=== PATIENT | female | born 1945 | race Caucasian/White ===

== ENCOUNTER 2019-07-04 19:57 | Emergency (ER) | payer OTHER, SELFPAY ==
[2019-07-04 20:23] VITALS: BP 176/91; PULSE 59; RESP 18; TEMP 37.2; O2SAT 99; BMI 24.7
[2019-07-04] MEDS: predniSONE 20 MG TABLET 40 MG PO (20:43)
[2019-07-04] MEDS: CYCLOBENZAPRINE 10 MG TABLET PO (20:44)
[2019-07-04] MEDS: HYDROCODONE/ACET 5/325 TABLET 1 TAB PO ×2 (20:46→21:26)
--- NOTE | 2019-07-04 21:06 | ED.BACK ---
HPI - Back Pain/Injury <Angelika Powers, WOOD STAINER-BC - Last Filed: 07/04/19 21:33> General Chief Complaint: Back Pain/Injury Stated Complaint: back pain Time Seen by Provider: 07/04/19 20:16 Source: patient and family Mode of arrival: ambulatory Limitations: no limitations History of Present Illness HPI Narrative: The patient is a 73-year-old female former smoker with history of back pain and sciatic who presents with a chief complaint of lower back pain. This started a few days ago when she was lifting rocks for her garden. She states she was lifting a rock, and twisting when she had the sudden onset of pain. She states her pain is across her lower back and radiates down her right leg to about her knee. She states this is consistent with her previous history of sciatica. She states that she has had surgery on her spine in the past, in order to work on her sciatica. She has scheduled follow-up with a pain specialist later this week. She states her pain is worse with movement. It is worse when she is sitting on when she is lying down. She denies any incontinence of bowel, incontinence of bladder or saddle anesthesia. She denies any numbness or tingling anywhere. She states that she took a Robaxin at 3:00 p.m. as well as 650 of Tylenol at 3:00 p.m.. She was seen at [facility] this morning, where she received Valium, as well as a trigger point injection. She states that she was told to come to this emergency department for an MRI if she does not feel better or feels worse. She states that she had a CT this morning at [facility], and that it came back with no acute findings. Related Data Home Medications Medication Instructions Recorded Confirmed meloxicam 15 mg tablet 15 mg PO DAILY 04/04/19 04/04/19 Previous Rx's Medication Instructions Recorded adjuvant AS01B (PF), component 0.5 ml IM ONCE #0.5 ml 04/04/19 vial 1 of 2 intramuscular suspension gabapentin 100 mg capsule 100 mg PO TID PRN #60 cap 04/04/19 lidocaine 5 % topical patch 1 patch TOP DAILY #30 each 04/04/19 cyclobenzaprine 10 mg PO TID PRN #20 tab 07/04/19 hydrocodone-acetaminophen [Delco] 1 tab PO Q4-6H PRN #14 tab 07/04/19 prednisone 40 mg PO DAILY #10 tab 07/04/19 Allergies Allergy/AdvReac Type Severity Reaction Status Date / Time Sulfa (Sulfonamide Allergy Unknown PT DOESN'T Verified 07/04/19 20:49 Antibiotics) RECALL [SULFA (SULFONAMIDE ANTIBIOTICS)] ibandronate sodium AdvReac Intermediate JOINT Verified 07/04/19 20:49 [From BONIVA] PAIN,WEAKNESS, BOB Ohejrrx-Ihs-Mfs Reductase AdvReac Intermediate JOINT Verified 07/04/19 20:49 Inhibitor LIU, [[id number] REDUCTASE WEAKNESS, INHIBITOR] zoledronic acid AdvReac Intermediate JOINT Verified 07/04/19 20:49 [From RECLAST] PAIN, WEAKNESS codeine [CODEINE] AdvReac Mild N/V/D Verified 07/04/19 20:49 OSTEOPOROSIS DRUGS Allergy Intermediate JOINT Uncoded 07/04/19 20:49 ACHES AND PAINS Review of Systems <AGUS Carney - Last Filed: 07/04/19 21:33> Review of Systems GENERAL: Denies chills, fatigue, malaise, fever, sweats. HEENT: Denies sinus pain, ear pain, sore throat, difficulty swallowing, dizziness. RESPIRATORY: Denies dyspnea, cough, wheezing, hemoptysis, sputum. CARDIOVASCULAR: Denies chest pain, palpitations, orthopnea, edema, GASTROINTESTINAL: Denies nausea, vomiting, abdominal pain, diarrhea, constipation, melena. : Denies dysuria, frequency, incontinence, hematuria, urinary retention. MUSCULOSKELETAL: See HPI SKIN: Denies rash, skin lesions, or other NEUROLOGIC: Denies weakness, headache, numbness, change in speech, confusion, seizures, incoordination. PSYCHIATRIC: No concerning psychosocial issues. 12 point review of systems is negative except for those stated above PFSH <AGUS Carney - Last Filed: 07/04/19 21:33> Medical History Ankle pain (Chronic ~2012) Anxiety (Chronic) Carpal tunnel syndrome (Chronic) Cerebral aneurysm (Chronic) Depression (Chronic) Headache (Chronic) Migraines (Chronic) Osteoporosis (Chronic ~1985) Restless leg syndrome (Chronic) Shoulder pain (Chronic ~2008) Tinnitus (Chronic ~1955) Chicken pox (Resolved) Fractures (Resolved ~2017) Mumps (Resolved) Surgical History Anesthesia (Resolved) History of back surgery (Resolved ~2009) History of hysterectomy (Resolved ~1973) History of shoulder surgery (Resolved ~1995) Family History (Updated 06/24/19 @ 20:45 by Rema Alonso) Mother History of heart disease COPD (chronic obstructive pulmonary disease) Brother History of heart disease Drug abuse Brother Hypertension Grandfather History of heart disease Stroke Grandmother Stroke Daughter Cancer Family/Other No problems noted. Social History Smoking Status: Former smoker Family History Mother History of heart disease COPD (chronic obstructive pulmonary disease) Brother History of heart disease Drug abuse Brother Hypertension Grandfather History of heart disease Stroke Grandmother Stroke Daughter Cancer Family/Other No problems noted. Social History Smoking Status: Former smoker Exam <AGUS Carney - Last Filed: 07/04/19 21:33> Narrative Exam Narrative: GENERAL: Elderly female, appears uncomfortable HEAD: Atraumatic. Normocephalic. No temporal or scalp tenderness. EYES: Pupils equal round and reactive. Extraocular motions intact. No scleral icterus. No injection or drainage. ENT: Nose without bleeding, purulent drainage or septal hematoma. Throat without erythema, tonsillar hypertrophy or exudate. Uvula midline. Airway patent. NECK: Trachea midline. No JVD or lymphadenopathy. Supple, nontender, no meningeal signs. CARDIOVASCULAR: Regular rate and rhythm without murmurs, gallops, or rubs. RESPIRATORY: Clear to auscultation. Breath sounds equal bilaterally. No wheezes, rales, or rhonchi. No cough. No increased respiratory effort. No accessory muscle use. GASTROINTESTINAL: Abdomen soft, non-tender, nondistended. No hepato-splenomegaly, or palpable masses. No guarding. EXTREMITIES: No clubbing, cyanosis, or edema. No joint tenderness, effusion, or edema noted. BACK: No pain to C or T-spine palpation. Patient has pain to L-spine palpation as well as paraspinal muscle palpation of L-spine. NEURO: AOx3. Strength is equal upper and lower extremities bilaterally. Sensation is intact. SKIN: No rash erythema ecchymosis laceration or abrasion noted over lower back. Rectal tone is intact. Exam performed with Jerri DON at bedside Initial Vital Signs Initial Vital Signs: Vital Signs Temperature 98.9 F 07/04/19 20:23 Pulse Rate 59 L 07/04/19 20:23 Respiratory Rate 18 07/04/19 20:23 Blood Pressure 176/91 H 07/04/19 20:23 Pulse Oximetry 99 07/04/19 20:23 <Radha Jacobs DO - Last Filed: 07/05/19 01:15> Initial Vital Signs Initial Vital Signs: Vital Signs Temperature 98.9 F 07/04/19 20:23 Pulse Rate 59 L 07/04/19 20:23 Respiratory Rate 18 07/04/19 20:23 Blood Pressure 176/91 H 07/04/19 20:23 Pulse Oximetry 99 07/04/19 20:23 Course <FABRICIO Carney-BC - Last Filed: 07/04/19 21:33> Course Narrative: Records were obtained from [facility]. CT of L-spine reviewed, which illustrate no acute osseous abnormality demonstrated, mild to moderate diffuse degenerative spondylosis changes in mid to lower spine. Orders Ordered: Discontinued Medications Hydrocodone Bitart/Acetaminophen (Delco 5/325) 1 tab PO NOW ONE Stop: 07/04/19 20:33 Last Admin: 07/04/19 20:46 Dose: 1 tab Hydrocodone Bitart/Acetaminophen (Delco 5/325) 1 tab PO NOW ONE Stop: 07/04/19 21:20 Last Admin: 07/04/19 21:26 Dose: 1 tab Hydrocodone Bitart/Acetaminophen (Vicodin Prepack) 1 bottle MISC SEEINSTR ONE Stop: 07/04/19 21:31 Last Admin: 07/04/19 21:40 Dose: 1 bottle Cyclobenzaprine HCl (Flexeril) 10 mg PO NOW ONE Stop: 07/04/19 20:33 Last Admin: 07/04/19 20:44 Dose: 10 mg Cyclobenzaprine HCl (Flexeril 10 Mg Prepack) 1 bottle MISC SEEINSTR ONE Stop: 07/04/19 21:31 Last Admin: 07/04/19 21:40 Dose: 1 bottle Lidocaine (Lidoderm) 1 each TOP NOW ONE Stop: 07/04/19 21:20 Last Admin: 07/04/19 21:26 Dose: 1 each Prednisone (Deltasone) 40 mg PO NOW ONE Stop: 07/04/19 20:33 Last Admin: 07/04/19 20:43 Dose: 40 mg Vital Signs - 8 hr 07/04/19 20:23 07/04/19 22:26 Temperature 98.9 F Pulse Rate 59 L 76 Respiratory Rate 18 Blood Pressure 176/91 H 130/71 Pulse Oximetry 99 98 <Radha Jacobs, DO - Last Filed: 07/05/19 01:15> Orders Ordered: Discontinued Medications Hydrocodone Bitart/Acetaminophen (Delco 5/325) 1 tab PO NOW ONE Stop: 07/04/19 20:33 Last Admin: 07/04/19 20:46 Dose: 1 tab Hydrocodone Bitart/Acetaminophen (Delco 5/325) 1 tab PO NOW ONE Stop: 07/04/19 21:20 Last Admin: 07/04/19 21:26 Dose: 1 tab Hydrocodone Bitart/Acetaminophen (Vicodin Prepack) 1 bottle MISC SEEINSTR ONE Stop: 07/04/19 21:31 Last Admin: 07/04/19 21:40 Dose: 1 bottle Cyclobenzaprine HCl (Flexeril) 10 mg PO NOW ONE Stop: 07/04/19 20:33 Last Admin: 07/04/19 20:44 Dose: 10 mg Cyclobenzaprine HCl (Flexeril 10 Mg Prepack) 1 bottle MISC SEEINSTR ONE Stop: 07/04/19 21:31 Last Admin: 07/04/19 21:40 Dose: 1 bottle Lidocaine (Lidoderm) 1 each TOP NOW ONE Stop: 07/04/19 21:20 Last Admin: 07/04/19 21:26 Dose: 1 each Prednisone (Deltasone) 40 mg PO NOW ONE Stop: 07/04/19 20:33 Last Admin: 07/04/19 20:43 Dose: 40 mg Vital Signs - 8 hr 07/04/19 20:23 07/04/19 22:26 Temperature 98.9 F Pulse Rate 59 L 76 Respiratory Rate 18 Blood Pressure 176/91 H 130/71 Pulse Oximetry 99 98 [facility] - Back Pain/Injury <NACHO CarneyP-BC - Last Filed: 07/04/19 21:33> [facility] Narrative Medical decision making narrative: The patient is a 73-year-old female who presents with a chief complaint of lower back pain requesting an MRI after being evaluated at an outside facility this morning. She had a CT of her L-spine, which was reviewed. Records from the outside facility review. She obtained a trigger point injection this morning. The patient's was recent pain medications were 650 of Tylenol 3:00 p.m. as well as 500 Robaxin at 3:00 p.m.. Given her sciatica, I offered her dose of prednisone. He also discussed the use of Flexeril as opposed to Robaxin and she was given a Delco. She felt improved and was able to stand after this, but still had continued pain be on comfort. The she was given a 2nd Delco and lidocaine patch. Rectal tone was intact. She does not have any neurological deficit at this point warranting an MRI, sore focus his pain control. I discussed at length follow up with PCP which she states understanding. Discussed return precautions of incontinence of bowel, incontinence of bladder saddle anesthesia and patient states understanding. Patient was signed out to Dr. Jacobs with pain control pending at 9:30 p.m.. Discharge Plan Departure Patient Disposition: Home Clinical Impression: Low back pain radiating down leg Sciatica Qualifiers: Laterality: right Qualified Code(s): M54.31 - Sciatica, right side Discharge Date/Time: 07/04/19 22:27 Interventions: ED Discharge Assessment Last Done: 07/04/19 22:26 Instructions: DI for Low Back Pain, DI for Back Pain With Sciatica Activity Restrictions/Additional Instructions: I have given you prescriptions of prednisone, which is a steroid that can help sciatica. I have also given you a prescription of Delco, this can be constipating and sedating. I have given you a prescription of Flexeril. This is a strong a muscle relaxer than Robaxin. Do not combine them. Please monitor for any acute concerns such as incontinence of bowel, incontinence of bladder or numbness in your groin. Be evaluated if any of these occur. Please follow up with primary care provider soon as possible. You may benefit from outpatient imaging. I also suggest [id number] pain cream such as lidocaine patches or Aspercreme Prescriptions: New prednisone 20 mg tablet 40 mg PO DAILY Qty: 10 RF: 0 cyclobenzaprine 10 mg tablet 10 mg PO TID PRN (Reason: muscle spasm) Qty: 20 RF: 0 hydrocodone-acetaminophen [Delco] 5-325 mg tablet 1 tab PO Q4-6H PRN (Reason: pain) Qty: 14 RF: 0 No Action Shingrix Adjuvant Component-PF suspension 0.5 ml IM ONCE Qty: 0.5 RF: 0 meloxicam 15 mg tablet 15 mg PO DAILY RF: 0 gabapentin 100 mg capsule 100 mg PO TID PRN (Reason: neck pain) Qty: 60 RF: 0 lidocaine [Lidoderm] 5 % adhesive patch,medicated 1 patch TOP DAILY Qty: 30 RF: 0 Referrals: Kiko Gomez DO [Primary Care Provider] - <Radha Jacobs DO - Last Filed: 07/05/19 01:15> Cosign ED Attending Cosignature Attestation: I was immediately available in the department for consultation. Documentation has been reviewed. I agree with assessment and plan.
--- NOTE | 2019-07-04 21:11 | ED_ITS ---
HPI - Back Pain/Injury <Angelika Powers, SELLING SPECIALIST-BC - Last Filed: 07/04/19 21:33> General Chief Complaint: Back Pain/Injury Stated Complaint: back pain Time Seen by Provider: 07/04/19 20:16 Source: patient and family Mode of arrival: ambulatory Limitations: no limitations History of Present Illness HPI Narrative: The patient is a 73-year-old female former smoker with history of back pain and sciatic who presents with a chief complaint of lower back pain. This started a few days ago when she was lifting rocks for her garden. She states she was lifting a rock, and twisting when she had the sudden onset of pain. She states her pain is across her lower back and radiates down her right leg to about her knee. She states this is consistent with her previous history of sciatica. She states that she has had surgery on her spine in the past, in order to work on her sciatica. She has scheduled follow-up with a pain specialist later this week. She states her pain is worse with movement. It is worse when she is sitting on when she is lying down. She denies any incontinence of bowel, incontinence of bladder or saddle anesthesia. She denies any numbness or tingling anywhere. She states that she took a Robaxin at 3:00 p.m. as well as 650 of Tylenol at 3:00 p.m.. She was seen at [facility] this morning, where she received Valium, as well as a trigger point injection. She states that she was told to come to this emergency department for an MRI if she does not feel better or feels worse. She states that she had a CT this morning at [facility], and that it came back with no acute findings. Related Data Home Medications Medication Instructions Recorded Confirmed meloxicam 15 mg tablet 15 mg PO DAILY 04/04/19 04/04/19 Previous Rx's Medication Instructions Recorded adjuvant AS01B (PF), component 0.5 ml IM ONCE #0.5 ml 04/04/19 vial 1 of 2 intramuscular suspension gabapentin 100 mg capsule 100 mg PO TID PRN #60 cap 04/04/19 lidocaine 5 % topical patch 1 patch TOP DAILY #30 each 04/04/19 cyclobenzaprine 10 mg PO TID PRN #20 tab 07/04/19 hydrocodone-acetaminophen [[place]] 1 tab PO Q4-6H PRN #14 tab 07/04/19 prednisone 40 mg PO DAILY #10 tab 07/04/19 Allergies Allergy/AdvReac Type Severity Reaction Status Date / Time Sulfa (Sulfonamide Allergy Unknown PT DOESN'T Verified 07/04/19 20:49 Antibiotics) RECALL [SULFA (SULFONAMIDE ANTIBIOTICS)] ibandronate sodium AdvReac Intermediate JOINT Verified 07/04/19 20:49 [From BONIVA] PAIN,WEAKNESS, BOB Dqoyrvp-Ljm-Thi Reductase AdvReac Intermediate JOINT Verified 07/04/19 20:49 Inhibitor LIU, [[id number] REDUCTASE WEAKNESS, INHIBITOR] zoledronic acid AdvReac Intermediate JOINT Verified 07/04/19 20:49 [From RECLAST] PAIN, WEAKNESS codeine [CODEINE] AdvReac Mild N/V/D Verified 07/04/19 20:49 OSTEOPOROSIS DRUGS Allergy Intermediate JOINT Uncoded 07/04/19 20:49 ACHES AND PAINS Review of Systems <AGUS Carney - Last Filed: 07/04/19 21:33> Review of Systems GENERAL: Denies chills, fatigue, malaise, fever, sweats. HEENT: Denies sinus pain, ear pain, sore throat, difficulty swallowing, dizzin ess. RESPIRATORY: Denies dyspnea, cough, wheezing, hemoptysis, sputum. CARDIOVASCULAR: Denies chest pain, palpitations, orthopnea, edema, GASTROINTESTINAL: Denies nausea, vomiting, abdominal pain, diarrhea, constipation, melena. : Denies dysuria, frequency, incontinence, hematuria, urinary retention. MUSCULOSKELETAL: See HPI SKIN: Denies rash, skin lesions, or other NEUROLOGIC: Denies weakness, headache, numbness, change in speech, confusion, seizures, incoordination. PSYCHIATRIC: No concerning psychosocial issues. 12 point review of systems is negative except for those stated above PFSH <AGUS Carney - Last Filed: 07/04/19 21:33> Medical History Ankle pain (Chronic ~2012) Anxiety (Chronic) Carpal tunnel syndrome (Chronic) Cerebral aneurysm (Chronic) Depression (Chronic) Headache (Chronic) Migraines (Chronic) Osteoporosis (Chronic ~1985) Restless leg syndrome (Chronic) Shoulder pain (Chronic ~2008) Tinnitus (Chronic ~1955) Chicken pox (Resolved) Fractures (Resolved ~2017) Mumps (Resolved) Surgical History Anesthesia (Resolved) History of back surgery (Resolved ~2009) History of hysterectomy (Resolved ~1973) History of shoulder surgery (Resolved ~1995) Family History (Updated 06/24/19 @ 20:45 by Rema Alonso) Mother History of heart disease COPD (chronic obstructive pulmonary disease) Brother History of heart disease Drug abuse Brother Hypertension Grandfather History of heart disease Stroke Grandmother Stroke Daughter Cancer Family/Other No problems noted. Social History Smoking Status: Former smoker Family History Mother History of heart disease COPD (chronic obstructive pulmonary disease) Brother History of heart disease Drug abuse Brother Hypertension Grandfather History of heart disease Stroke Grandmother Stroke Daughter Cancer Family/Other No problems noted. Social History Smoking Status: Former smoker Exam <AGUS Carney - Last Filed: 07/04/19 21:33> Narrative Exam Narrative: GENERAL: Elderly female, appears uncomfortable HEAD: Atraumatic. Normocephalic. No temporal or scalp tenderness. EYES: Pupils equal round and reactive. Extraocular motions intact. No scleral icterus. No injection or drainage. ENT: Nose without bleeding, purulent drainage or septal hematoma. Throat without erythema, tonsillar hypertrophy or exudate. Uvula midline. Airway patent. NECK: Trachea midline. No JVD or lymphadenopathy. Supple, nontender, no meningeal signs. CARDIOVASCULAR: Regular rate and rhythm without murmurs, gallops, or rubs. RESPIRATORY: Clear to auscultation. Breath sounds equal bilaterally. No wheezes, rales, or rhonchi. No cough. No increased respiratory effort. No accessory muscle use. GASTROINTESTINAL: Abdomen soft, non-tender, nondistended. No hepato- splenomegaly, or palpable masses. No guarding. EXTREMITIES: No clubbing, cyanosis, or edema. No joint tenderness, effusion, or edema noted. BACK: No pain to C or T-spine palpation. Patient has pain to L-spine palpation as well as paraspinal muscle palpation of L-spine. NEURO: AOx3. Strength is equal upper and lower extremities bilaterally. Sensation is intact. SKIN: No rash erythema ecchymosis laceration or abrasion noted over lower back. Rectal tone is intact. Exam performed with Jerri DON at bedside Initial Vital Signs Initial Vital Signs: Vital Signs Temperature 98.9 F 07/04/19 20:23 Pulse Rate 59 L 07/04/19 20:23 Respiratory Rate 18 07/04/19 20:23 Blood Pressure 176/91 H 07/04/19 20:23 Pulse Oximetry 99 07/04/19 20:23 <Radha Jacobs DO - Last Filed: 07/05/19 01:15> Initial Vital Signs Initial Vital Signs: Vital Signs Temperature 98.9 F 07/04/19 20:23 Pulse Rate 59 L 07/04/19 20:23 Respiratory Rate 18 07/04/19 20:23 Blood Pressure 176/91 H 07/04/19 20:23 Pulse Oximetry 99 07/04/19 20:23 Course <FABRICIO Carney-BC - Last Filed: 07/04/19 21:33> Course Narrative: Records were obtained from [facility]. CT of L-spine reviewed, which illustrate no acute osseous abnormality demonstrated, mild to moderate diffuse degenerative spondylosis changes in mid to lower spine. Orders Ordered: Discontinued Medications Hydrocodone Bitart/Acetaminophen ([place] 5/325) 1 tab PO NOW ONE Stop: 07/04/19 20:33 Last Admin: 07/04/19 20:46 Dose: 1 tab Hydrocodone Bitart/Acetaminophen ([place] 5/325) 1 tab PO NOW ONE Stop: 07/04/19 21:20 Last Admin: 07/04/19 21:26 Dose: 1 tab Hydrocodone Bitart/Acetaminophen (Vicodin Prepack) 1 bottle MISC SEEINSTR ONE Stop: 07/04/19 21:31 Last Admin: 07/04/19 21:40 Dose: 1 bottle Cyclobenzaprine HCl (Flexeril) 10 mg PO NOW ONE Stop: 07/04/19 20:33 Last Admin: 07/04/19 20:44 Dose: 10 mg Cyclobenzaprine HCl (Flexeril 10 Mg Prepack) 1 bottle MISC SEEINSTR ONE Stop: 07/04/19 21:31 Last Admin: 07/04/19 21:40 Dose: 1 bottle Lidocaine (Lidoderm) 1 each TOP NOW ONE Stop: 07/04/19 21:20 Last Admin: 07/04/19 21:26 Dose: 1 each Prednisone (Deltasone) 40 mg PO NOW ONE Stop: 07/04/19 20:33 Last Admin: 07/04/19 20:43 Dose: 40 mg Vital Signs - 8 hr 07/04/19 20:23 07/04/19 22:26 Temperature 98.9 F Pulse Rate 59 L 76 Respiratory Rate 18 Blood Pressure 176/91 H 130/71 Pulse Oximetry 99 98 <Radha Jacobs DO - Last Filed: 07/05/19 01:15> Orders Ordered: Discontinued Medications Hydrocodone Bitart/Acetaminophen ([place] 5/325) 1 tab PO NOW ONE Stop: 07/04/19 20:33 Last Admin: 07/04/19 20:46 Dose: 1 tab Hydrocodone Bitart/Acetaminophen ([place] 5/325) 1 tab PO NOW ONE Stop: 07/04/19 21:20 Last Admin: 07/04/19 21:26 Dose: 1 tab Hydrocodone Bitart/Acetaminophen (Vicodin Prepack) 1 bottle MISC SEEINSTR ONE Stop: 07/04/19 21:31 Last Admin: 07/04/19 21:40 Dose: 1 bottle Cyclobenzaprine HCl (Flexeril) 10 mg PO NOW ONE Stop: 07/04/19 20:33 Last Admin: 07/04/19 20:44 Dose: 10 mg Cyclobenzaprine HCl (Flexeril 10 Mg Prepack) 1 bottle MISC SEEINSTR ONE Stop: 07/04/19 21:31 Last Admin: 07/04/19 21:40 Dose: 1 bottle Lidocaine (Lidoderm) 1 each TOP NOW ONE Stop: 07/04/19 21:20 Last Admin: 07/04/19 21:26 Dose: 1 each Prednisone (Deltasone) 40 mg PO NOW ONE Stop: 07/04/19 20:33 Last Admin: 07/04/19 20:43 Dose: 40 mg Vital Signs - 8 hr 07/04/19 20:23 07/04/19 22:26 Temperature 98.9 F Pulse Rate 59 L 76 Respiratory Rate 18 Blood Pressure 176/91 H 130/71 Pulse Oximetry 99 98 [facility] - Back Pain/Injury <NACHO CarneyP-BC - Last Filed: 07/04/19 21:33> [facility] Narrative Medical decision making narrative: The patient is a 73-year-old female who presents with a chief complaint of lower back pain requesting an MRI after being evaluated at an outside facility this morning. She had a CT of her L-spine, which was reviewed. Records from the outside facility review. She obtained a trigger point injection this morning. The patient's was recent pain medications were 650 of Tylenol 3:00 p.m. as well as 500 Robaxin at 3:00 p.m.. Given her sciatica, I offered her dose of prednisone. He also discussed the use of Flexeril as opposed to Robaxin and she was given a [place]. She felt improved and was able to stand after this, but still had continued pain be on comfort. The she was given a 2nd [place] and lidocaine patch. Rectal tone was intact. She does not have any neurological deficit at this point warranting an MRI, sore focus his pain control. I discussed at length follow up with PCP which she states understanding. Discussed return precautions of incontinence of bowel, incontinence of bladder saddle anesthesia and patient states understanding. Patient was signed out to Dr. Jacobs with pain control pending at 9:30 p.m.. Discharge Plan Departure Patient Disposition: Home Clinical Impression: Low back pain radiating down leg Sciatica Qualifiers: Laterality: right Qualified Code(s): M54.31 - Sciatica, right side Discharge Date/Time: 07/04/19 22:27 Interventions: ED Discharge Assessment Last Done: 07/04/19 22:26 Instructions: DI for Low Back Pain, DI for Back Pain With Sciatica Activity Restrictions/Additional Instructions: I have given you prescriptions of prednisone, which is a steroid that can help sciatica. I have also given you a prescription of [place], this can be constipating and sedating. I have given you a prescription of Flexeril. This is a strong a muscle relaxer than Robaxin. Do not combine them. Please monitor for any acute concerns such as incontinence of bowel, incontinence of bladder or numbness in your groin. Be evaluated if any of these occur. Please follow up with primary care provider soon as possible. You may benefit from outpatient imaging. I also suggest [id number] pain cream such as lidocaine patches or Asperc minerva Prescriptions: New prednisone 20 mg tablet 40 mg PO DAILY Qty: 10 RF: 0 cyclobenzaprine 10 mg tablet 10 mg PO TID PRN (Reason: muscle spasm) Qty: 20 RF: 0 hydrocodone-acetaminophen [[place]] 5-325 mg tablet 1 tab PO Q4-6H PRN (Reason: pain) Qty: 14 RF: 0 No Action Shingrix Adjuvant Component-PF suspension 0.5 ml IM ONCE Qty: 0.5 RF: 0 meloxicam 15 mg tablet 15 mg PO DAILY RF: 0 gabapentin 100 mg capsule 100 mg PO TID PRN (Reason: neck pain) Qty: 60 RF: 0 lidocaine [Lidoderm] 5 % adhesive patch,medicated 1 patch TOP DAILY Qty: 30 RF: 0 Referrals: Kiko Gomez DO [Primary Care Provider] - <Radha Jacobs DO - Last Filed: 07/05/19 01:15> Cosign ED Attending Cosignature Attestation: I was immediately available in the department for consultation. Documentation has been reviewed. I agree with assessment and plan.
[2019-07-04] MEDS: LIDOCAINE PATCH 1 EACH ADH..PATCH TOP (21:26)
[2019-07-04] MEDS: CYCLOBENZAPRINE 10 MG PREPACK 1 BOTTLE MISC (21:40)
[2019-07-04] MEDS: HYDROCODONE/ACET 5/325 PREPACK 1 BOTTLE MISC (21:40)
[2019-07-04 22:26] VITALS: BP 130/71; PULSE 76; O2SAT 98
== END 2019-07-04 22:27 | disposition home or self-care (01) ==
PROVIDERS: Emergency Provider Nurse Practitioner Family; Family Provider Family Medicine; PCP Family Medicine
DX: M54.41 Lumbago with sciatica, right side (principal)
CPT/HCPCS: 99282; 99283

== ENCOUNTER → 2021-02-26 17:34 | Outpatient (CLI) | payer OTHER, SELFPAY ==
--- NOTE | 2021-02-26 17:38 | DI.MRI.S_ITS ---
PROCEDURE: MR LUMBAR SPINE WO CON INDICATIONS: LOW BACK PAIN TECHNIQUE: Noncontrast sagittal T1 spin echo and T2 fast echo, sagittal STIR, axial T1 and T2 fast spin echo through the lumbar spine. In cases with scoliosis, additional coronal T2 fast spin echo may be performed. COMPARISON: [facility], MR, L-SPINE WITHOUT CONTRAST, 06/23/2015, 10:38. FINDINGS: Image quality: Excellent. Alignment and Curvature: There is 2 mm retrolithesis of L5-S1. Bone Marrow: Marrow is of normal overall signal. Moderate reactive endplate changes at L3-4. No acute vertebral body compression fractures. Spinal Cord: Conus medullaris terminates at the L1-L2 level. Visualized cord demonstrates normal signal and size. Paraspinous Soft Tissues: No paravertebral masses. Discs: Multilevel moderate to severe disc dessication most prominent from L3-4 through L5-S1, most progressive at L3-4 compared to prior exam. L1-L2: No disc bulge, spinal stenosis or foraminal narrowing. No interval change. L2-L3: Mild disc bulge with minimal canal narrowing. Mild bilateral foraminal narrowing with facet and ligamentum flavum hypertrophy. No interval change. L3-L4: Mild disc bulge with mild spinal stenosis. Ixzl-yh-jnbzdfbg bilateral foraminal narrowing, progressive compared to prior exam. Facet and ligamentum flavum hypertrophy are present. L4-L5: Mild disc bulge without spinal stenosis. There is significant compromise the left lateral recess, unchanged. Moderate bilateral foraminal narrowing with facet and ligamentum flavum hypertrophy, with minimal interval progression. L5-S1: Mild disc bulge without spinal stenosis. Moderate to severe bilateral foraminal narrowing with facet and ligamentum flavum hypertrophy. There is slight appearance of nerve root flattening through the subarticular recesses bilaterally. Appearance is minimally progressive compared to prior exam. IMPRESSION: 1. Multilevel degenerative changes with areas of minimal progression as above. Dictated by: Ellyn Barrett M.D. on 03/01/2021 at 12:20 Approved by: Ellyn Brarett M.D. on 03/01/2021 at 13:59
== END ==
PROVIDERS: Family Provider Family Medicine; PCP Family Medicine; Referring Provider Family Medicine; Visit Provider Family Medicine
DX: M54.5 Low back pain (principal); M48.061 Spinal stenosis, lumbar region without neurogenic claudication
CPT/HCPCS: 72148

== ENCOUNTER → 2021-03-29 15:28 | Outpatient (CLI) | payer OTHER, SELFPAY ==
--- NOTE | 2021-03-29 15:29 | DI.MRI.S_ITS ---
PROCEDURE: MR CERVICAL SPINE WO CON INDICATIONS: Spinal stenosis, cervical region TECHNIQUE: Noncontrast sagittal T1 spin echo and T2 fast spin echo, sagittal STIR, foraminal oblique sagittal T2 fast spin echo, and axial gradient echo or T2 fast spin echo through the cervical spine. COMPARISON: [facility], CR, XR CERVICAL SPINE 2 OR 3 VIEWS, 03/16/2021, 10:19. FINDINGS: Image quality: Diagnostic, with note made of motion artifact. Alignment and Curvature: There is straightening of the normal cervical lordosis. No focal AP alignment abnormality is seen. Bone Marrow: Marrow demonstrates normal overall signal. Spinal Cord: Visualized spinal cord has normal size and signal. No cerebellar tonsillar herniation. Paraspinous Soft Tissues: No paravertebral masses. Prevertebral soft tissues are normal in thickness. C2-C3: The disc height is well-preserved. Loss of disc signal is seen at this level. A mild degree of generalized disc osteophyte complex is seen. Mild to moderate facet hypertrophy is seen at this level. There is [id number] bilateral neural foraminal narrowing seen. No significant central narrowing is seen. C3-C4: At least moderate loss of disc height and disc signal can be seen. Moderate generalized disc osteophyte complex is seen. There is a central/left disc osteophyte protrusion seen. Moderate facet joint hypertrophy is seen. Moderate to severe bilateral neural foraminal narrowing can be seen. Moderate central canal narrowing is seen. C4-C5: Moderate to severe loss of disc height and disc signal can be seen. Moderate generalized disc osteophyte complex is seen. Uncovertebral joint hypertrophy is seen at this level. There is moderate right-sided and tcxx-sf-xlcadtrw left-sided facet hypertrophy seen at this level. There is at least moderate bilateral neural foraminal narrowing seen. Mild to moderate central canal narrowing is seen. C5-C6: Moderate loss of disc height is seen. Loss of disc signal is seen. At least moderate disc osteophyte complex is seen. Mild to moderate facet hypertrophy is seen. There is moderate to severe bilateral neural foraminal narrowing seen. Moderate central canal narrowing is seen. There is associated mass effect upon the ventral spinal cord. C6-C7: Moderate to severe loss of disc height and disc signal can be seen. Moderate disc osteophyte complex is seen, which is eccentric to the left. Uncovertebral joint hypertrophy is seen at this level. Mild to moderate facet hypertrophy is seen. There is moderate to severe left-sided and moderate right-sided neural foraminal narrowing seen. Mild to moderate central canal narrowing is seen. C7-T1: The disc height is well-preserved. Loss of disc signal is seen at this level. A mild degree of generalized disc osteophyte complex is seen. No significant neural foraminal or central canal narrowing can be seen. IMPRESSION: Multiple levels of cervical spine degenerative change are seen, which are most prominent inferiorly. Dictated by: Jose Armando Ba M.D. on 03/29/2021 at 16:09 Approved by: Jose Armando Ba M.D. on 03/29/2021 at 16:12
== END ==
PROVIDERS: Family Provider Family Medicine; PCP Family Medicine; Referring Provider Orthopaedic Surgery Orthopaedic Surgery of the Spine; Visit Provider Orthopaedic Surgery Orthopaedic Surgery of the Spine
DX: M48.02 Spinal stenosis, cervical region (principal); M47.812 Spondylosis without myelopathy or radiculopathy, cervical region
CPT/HCPCS: 72141

== ENCOUNTER → 2021-08-30 13:48 | Outpatient (CLI) | payer OTHER, SELFPAY ==
[2021-08-30 17:06] LABS: COVID19 -Nasal RAPID Negative (Negative)
== END ==
PROVIDERS: Family Provider Family Medicine; PCP Family Medicine; Visit Provider Nurse Practitioner Family
DX: Z20.822 Contact with and (suspected) exposure to COVID-19 (principal); Z01.812 Encounter for preprocedural laboratory examination
CPT/HCPCS: 87635; C9803

== ENCOUNTER 2021-09-01 06:07 | Day surgery (SDC) | payer OTHER, SELFPAY ==
[2021-08-25 08:38] VITALS: BMI 20.8
[2021-09-01] VITALS (17 sets, daily range): BP systolic 121–167; BP diastolic 62–101; PULSE 48–91; RESP 10–18; TEMP 35.8–37.1; O2SAT 88–100; BMI 20.8
--- NOTE | 2021-09-01 | DI.RAD.S_ITS ---
PROCEDURE: XR CERVICAL SPINE 2V OR 3V INDICATIONS: ACDF TECHNIQUE: 2 fluoroscopic images of the cervical spine were acquired. COMPARISON: None. FINDINGS: Bones: Anterior cervical fixation hardware and discectomy are seen at C4-7. IMPRESSION: Fluoroscopic images as detailed above. Dictated by: Mauro Roy M.D. on 09/01/2021 at 13:35 Approved by: Mauro Roy M.D. on 09/01/2021 at 13:38
[2021-09-01] MEDS: LACTATED RINGERS 1,000 ML 42 ML IV ×2 (07:00→07:22)
[2021-09-01] MEDS: ACETAMINOPHEN 325 MG TABLET 650 MG PO (07:38)
--- NOTE | 2021-09-01 07:40 | PM.PREOP ---
Pre-operative Note COVID-19 COVID-19 status: Negative Result date/Date tested (Pos, Neg/Pending): 08/30/21 Interval Note History & Physical reviewed/Exam performed by Physician: Yes Changes to H&P: No
[2021-09-01] MEDS: CEFAZOLIN 1 GM VIAL 2 GM IV (08:15)
--- NOTE | 2021-09-01 08:32 | SUR.OPER ---
Supine, head on gel donut. Arms padded with gel pads, tucked at sides. Pillow placed under knees and heels padded with gelpad. towel roll under shoulders. Safety belt at thigh. Legs uncrossed.
[2021-09-01] MEDS: LACTATED RINGERS 1,000 ML 120 ML IV (10:20)
--- NOTE | 2021-09-01 10:59 | P.OP_ITS ---
Operative Date/Time/Diagnoses Date of procedure: 09/01/21 Time of procedure: 08:00 Pre-op diagnosis: 1. C4-5, C5-6, C6-7 spinal stenosis 2. C4-5, C5-6, C6-7 spondylosis with radiculopathy Post-op diagnosis: same Procedure & Clinicians Procedure: 1. C4-5 C5-6 C6-7 anterior cervical diskectomy and fusion 2. C4-5 C5-6 C6-7 anterior interbody cage placement 3. C4-5 C5-6 C6-7 anterior instrumentation with plate and screw placement in C4-C5-C6 and C7 vertebrae 4. Utilization of microsurgical technique and operating microscope Same procedure as scheduled: Yes Indications: Patient has been having chronic neck pain and worsening cervical radiculopathy. Patient failed multiple conservative management with worsening pain weakness and numbness in her upper extremity. Patient has been having difficulty performing activity of daily living. After discussing risks benefits of treatment options, patient elected proceed with surgery. Surgeon: Nicole Cordon Restorative Care Technician: Maya Nguyen Click Yes if Unassisted: No Operative Notes Closure Type: primary Specimen(s): none sent Prosthetic devices, grafts, tissues, transplants, or devices: Globus Extend plate, PEEK cages Estimated Blood Loss (mL): 5 Blood products transfused: none Procedure in detail: Patient was seen in the preoperative area. Risks and benefits of the surgery was discussed with the patient. Operative consent was obtained and placed in the chart. Patient was then taken to the operative room. Prophylactic antibiotic was given less than 0.5 hr prior to skin incision. General anesthesia was administered. Patient was placed into a supine position on her radiolucent table. Bilateral shoulders were taped down to allow proper C- arm imaging. Anterior cervical area was prepped and draped in a sterile fashion. Time-out was performed at this time. Using lateral C-arm imaging, the level between C4 and C7 was identified and marked on patient's neck. A oblique incision from midline towards medial border of sternocleidomastoid muscle was made. The platysma muscle was incised in line with skin incision. Metzenbaum scissor was used to develop the plane between the medial border of sternocleidomastoid d and the strap muscles medially. The carotid sheath and its contents were identified and protected behind the hand- held retractor during the entire case. The plane between the carotid sheath and strap muscles was developed with Metzenbaum scissors. Dissection was made down to the level of the anterior cervical fascia. Longus colli muscle was incised on the anterior aspect of vertebral bodies bilaterally from C4-C7. Spinal needle was placed into the C4-5 disc space and confirmed with lateral C-arm imaging. Using microsurgical technique and operative microscope, anterior cervical diskectomy was performed at C4-5 C5-6 and C6-7 level. This was done by removing the disc material, removing the anterior and posterior osteophytes posterior longitudinal ligaments along with performing bilateral foraminotomies at all 3 levels. Patient was found to have severe central and foraminal stenosis at all 3 levels. Patient's stenosis was fully decompressed after decompression was completed. After the diskectomy was completed, 3 anterior interbody cages were obtained. The cages were packed with globus via cell bone grafting material. One cage each along with the bone grafting material was then packed into the interbody spaces from C4-C7 with one cage into each interbody level. After the cages were placed, the anterior cervical plate was stabilized to the C4-C7 vertebrae using 2 screws at each each level. Total 8 screws were placed. After confirming placement of the hardware with AP and lateral C-arm imaging, the screws were locked into the plate using the locking mechanism and torque limiting screwdriver. After the hardware was placed and confirmed with AP and lateral C-arm imaging, the wound was irrigated with sterile normal saline. The platysma muscle and the subcutaneous tissue was closed with 2-0 Vicryl. The skin was closed with 4-0 Monocryl and Steri-Strips. Patient tolerated the procedure well. Patient was transferred recovery room in stable condition. There were no complications. Complications: none Post-operative Condition: stable Disposition: PACU Plan for aftercare: Admit to inpatient hospital
--- NOTE | 2021-09-01 11:07 | SUR.PHASEI ---
Patient to PACU in bed after general anthesthia with Dr Browning and Rn. SBAR report at bedside. Pt with oral airway, breathing unassisted on room air. Oral airway out at 1106. Soft collar in place.
[2021-09-01] MEDS: fentaNYL 100 MCG/2 ML INJ IV ×2 (11:20→11:30)
[2021-09-01] MEDS: OXYCODONE IR 5 MG TABLET PO ×4 (11:35→20:10)
[2021-09-01] MEDS: hydrOXYzine pamoate 25 MG CAPSULE PO (11:35)
--- NOTE | 2021-09-01 12:22 | SUR.PHASEI ---
Patient transferred in bed by this RN to room 205 on 2L of oxygen, alert and oriented. SBAR report to Louise RN at bedside. Call light in reach, bed in low position. at bedside.
--- NOTE | 2021-09-01 13:00 | PT.IIE ---
Current Diagnoses Other spondylosis with radiculopathy, cervical region (09/01/21) Spinal stenosis, cervical region (09/01/21) Surgery Performed Operation Date: 09/01/21 07:45 Actual Procedures p C4-5, C5-6, C6-C7 ACDF with anterior instrumentation - Nicole Cordon MD Surgical History (Last Updated 08/25/21 @ 09:17 by Marisabel Costa RN) Anesthesia History of hysterectomy (~1973) Medical History (Last Updated 08/25/21 @ 09:23 by Marisabel Costa RN) Acid reflux Ankle pain (~2012) Anxiety Arrhythmia Arthritis Bipolar disorder Carpal tunnel syndrome Cerebral aneurysm (2015) Chicken pox Depression Essential tremor Fractures (~2017) Headache Heartburn High cholesterol HTN (hypertension) Irregular heartbeat Migraines Mumps Osteoporosis (~1985) Panic attacks Pseudoaneurysm Psoriasis Restless leg syndrome Shoulder pain (~2008) Tinnitus (~1955) Physical Therapy Inpatient Evaluation/Re-Eval M1 PT/OT-IP Prior Functional Status Start: 09/01/21 14:45 Freq: NEEDED Status: Active Protocol: Document 09/01/21 13:00 AB (Rec: 09/01/21 15:03 AB [id number]) Medical Review Prior Functional Status Medical History Reviewed Yes Communication able to make needs known but a little drowsy Mobility and Gait pt stated that she is independent with all mobilities and ambulation without AD Social History Household Members spouse Living Arrangements House Number of Floors (Floors) One Floor Number of Stairs To Enter/Railing? 2 steps to enter with R rail ascending Home Environment High Toilet,Tub/Shower Home Equipment Hand Held Shower Additional Social History Comment spouse plans to just assist pt with sponge bathing M2 PT-IP Current Condition Start: 09/01/21 14:45 Freq: NEEDED Status: Active Protocol: Document 09/01/21 13:00 AB (Rec: 09/01/21 15:03 AB [id number]) Physical Therapy Current Condition Current Condition Evaluation Date 09/01/21 Treatment Diagnosis s/p C4-5, C5-6, C6-7 ACDF; difficulty in walking Onset Date 09/01/21 Precautions Cervical Spine Precautions Soft Collar for Comfort,No Heavy Lifting,Log Roll M3 PT-IP Subjective Start: 09/01/21 14:45 Freq: NEEDED Status: Active Protocol: Document 09/01/21 13:00 AB (Rec: 09/01/21 15:03 [id number]) Subjective Physical Therapy Visit Type Type Initial Evaluation Visit Start Time 13:00 Visit Stop Time 13:50 Total Visit Minutes 50 Number of PLANNING MANAGER Visits 0 Physical Therapy Visit Comments Patient Comments pt is agreeable to do PT Therapy Pain Assessment Pain When Pain Assessed At Rest Location Neck Intensity 7 Scale Used Numeric (0 - 10) Pain Management Techniques Apply Cold,Distraction, Modification of Treatment,Re- positioning,Timing of Activity with Medications M4 PT-IP Mobility and Gait Start: 09/01/21 14:45 Freq: NEEDED Status: Active Protocol: Document 09/01/21 13:00 AB (Rec: 09/01/21 15:03 [id number]) PT-Bed Mobility Assessment Rolling Type of Rolling Log Rolling Level of Assist Minimal Assistance Supine to Sit Supine to Sit Minimal Assistance Sit to Supine Sit to Supine Minimal Assistance PT-Transfer Assessment Sit to and From Stand Sit to and from Stand Minimal Assistance,1 Person Assistance,Use of Upper Extremities Equipment Transfer Assistive Device Gait Belt,Front Wheeled Walker Orthotic/Prosthetic Devices or Brace: No Comments Mobility Comments educated pt and spouse regarding cervical precautions . BP in supine: 139/72 pt completed supine to sit min A log roll. Pt. was able to sit on EOB SBA. c/o lightheadedness. BP: 147/78. educated spouse on collar management and was able to assist pt with donning of collar. completed sit to stand min A and ambulated in room using FWW min to mod A and cues ~ 25 ft. pt tends to stiffen/ tighten UE and neck a lot and ambulation is very guarded. pt requested to go back to bed. completed log roll sit to supine min A and cues. positioned in bed. call light and table placed within reach. Gait Assessment Gait Gait Assistance Required: Minimum Assistance,Moderate Assistance Distance (Feet) 25 Able to Maintain Weight Bearing Status Yes During Gait Assistive Devices Assistive Device Gait Belt,Front Wheeled Walker Orthotic/Prosthetic Devices or Brace: No Gait Deviations General Gait Pattern Decreased Stride Length, Decreased Feet Clearance Factors Limiting Gait Function Factors Limiting Gait Function Decreased Activity Tolerance, Decreased Strength,Difficulty Following Directions,Limited Range of Motion,Pain,Poor Balance,Poor Safety Awareness Comments Gait Comments pls refer to mobility section for details PT-Balance Assessment Sitting Balance and Reactions Static Sitting Balance Ability Good Dynamic Sitting Balance Ability Good Standing Balance and Reactions Static Standing Balance Ability Fair Dynamic Standing Balance Ability Fair Device Used FWW M5 PT-IP Objective Assessments Start: 09/01/21 14:45 Freq: NEEDED Status: Active Protocol: Document 09/01/21 13:00 AB (Rec: 09/01/21 15:03 AB [id number]) Orientation Orientation/Cognition Level of Alertness Alert Orientation Name Language Function Ability No Deficits Noted Safety Awareness Decreased Safety Awareness Memory Description No Deficits Noted Gross Range of Motion Lower Extremity ROM Assessment Within Functional Limits Strength Lower Extremity Strength Assessment Within Functional Limits Sensation Assessment Sensation Gross Sensation WNL Muscle Tone Muscle Tone WNL Yes M6 PT-IP Treatment Start: 09/01/21 14:45 Freq: NEEDED Status: Active Protocol: Document 09/01/21 13:00 AB (Rec: 09/01/21 15:03 AB [email or web address]) Physical Therapy Treatment Education Education Provided Precautions,Weight Bearing Status,Post-Op Packet,Safety M7 PT-IP Assessment and Plan Start: 09/01/21 14:45 Freq: NEEDED Status: Active Protocol: Document 09/01/21 13:00 AB (Rec: 09/01/21 15:03 AB [id number]) PT Summary Assessment and Plan Potential Rehabilitation Potential Fair Status of Condition at Evaluation Evolving Summary Impairments Pain,ROM,Strength,Balance, Coordination,Cognition,Bed Mobility,Transfers,Gait, Activity Tolerance Assessment Summary pt s/p ACDF POD 0. required min A with mobility and has increase UE and cervical guarding affecting mobility. pt plans to go home and spouse will be able to assist pt at home. will conduct caregiver training when appropriate. stair climbing also needs to be completed prior to d/c. pt does not have FWW at home but spouse stated that he is going to call the [employer] to borrow one. will continue to assess pt's progress. Goals Bed Mobility Goal Independent Transfer Goal Independent,Front Wheeled Walker Gait Goal Independent,Front Wheel Walker Gait Distance 200 Other Goals improve ambulation without AD 200 ft SBA up/down 2 steps R rail ascending SBA Days to Meet Goals 5 Frequency of Treatment Frequency Of Treatment Twice a Day Treatment Plan Physical Therapy Treatment Plan Bed Mobility Training,Transfer Training,Gait Training, Therapeutic Exercise,Balance Retraining,Post Op Education, Discharge Planning,Hot or Cold Pack,Neuromuscular Re-ed, Coordination Retraining,Manual Therapy Precautions Cervical Spine Precautions Soft Collar for Comfort,No Heavy Lifting,Log Roll Recommendations To Nursing Amount of Assist Needed 1 Person Assist Discharge Recommendations PT Discharge Recommendations Home with Assistance Transportation Needs at Discharge Private Vehicle
[2021-09-01] MEDS: CEFAZOLIN 1 GM VIAL IV ×2 (14:51→22:10)
[2021-09-01] MEDS: SODIUM CHLORIDE 0.9% 1,000 ML 100 ML IV (14:52)
--- NOTE | 2021-09-01 15:01 | OT.IPNOTE ---
Attempted to see pt for OT eval and pt not wanting to get up again as just saw PT earlier. Able to talk to pt and pt's to talk about prior level . NO charge and to see pt tomorrow for OT eval.
[2021-09-01] MEDS: HYDROMORPHONE 0.5 MG INJ 0.2 MG IV (18:40)
[2021-09-01] MEDS: METOPROLOL IR 25 MG TABLET PO (20:10)
[2021-09-01] MEDS: SENNOSIDES 8.6 MG TABLET 17.2 MG PO (20:10)
[2021-09-01] MEDS: DOCUSATE 100 MG CAPSULE PO (20:10)
[2021-09-02] MEDS: HYDROMORPHONE 0.5 MG INJ 0.2 MG IV ×2 (00:05→04:05)
[2021-09-02] MEDS: ACETAMINOPHEN 325 MG TABLET 650 MG PO ×2 (00:05→04:06)
[2021-09-02] MEDS: hydrOXYzine pamoate 25 MG CAPSULE PO ×3 (00:05→09:18)
[2021-09-02 00:09] VITALS: BP 153/90; PULSE 81; RESP 16; TEMP 36.3; O2SAT 96
[2021-09-02] MEDS: SODIUM CHLORIDE 0.9% 1,000 ML 100 ML IV (02:40)
[2021-09-02 05:05] VITALS: BP 131/75; PULSE 60; RESP 16; TEMP 36.6; O2SAT 97
[2021-09-02 09:00] VITALS: BP 135/84; PULSE 67; RESP 16; TEMP 36.8; O2SAT 97
[2021-09-02] MEDS: DOCUSATE 100 MG CAPSULE PO (09:17)
[2021-09-02] MEDS: OXYCODONE IR 5 MG TABLET PO ×2 (09:18→12:56)
[2021-09-02] MEDS: METOPROLOL IR 25 MG TABLET PO (09:18)
[2021-09-02] MEDS: INFLUENZA HD VACCINE 0.7 ML SYRINGE IM (09:19)
--- NOTE | 2021-09-02 09:23 | OT.IP.EVAL ---
Current Diagnoses Other spondylosis with radiculopathy, cervical region (09/01/21) Spinal stenosis, cervical region (09/01/21) Surgery Performed Operation Date: 09/01/21 07:45 Actual Procedures p C4-5, C5-6, C6-C7 ACDF with anterior instrumentation - Nicole Cordon MD Past Medical History (Last Updated 08/25/21 @ 09:23 by Marisabel Costa RN) Acid reflux Ankle pain (~2012) Anxiety Arrhythmia Arthritis Bipolar disorder Carpal tunnel syndrome Cerebral aneurysm (2015) Chicken pox Depression Essential tremor Fractures (~2017) Headache Heartburn High cholesterol History of lumbar surgery (07/2015) History of shoulder surgery (~1995) HTN (hypertension) Hx of bilateral cataract extraction (~2016) Hx of dilation and curettage (1973) Hx of tonsillectomy (1961) Irregular heartbeat Migraines Mumps Osteoporosis (~1985) Panic attacks Pseudoaneurysm Psoriasis Restless leg syndrome Shoulder pain (~2008) Tinnitus (~1955) Surgical History (Last Updated 08/25/21 @ 09:17 by Marisabel Costa RN) Anesthesia History of hysterectomy (~1973) History of lumbar surgery (07/2015) History of shoulder surgery (~1995) Hx of bilateral cataract extraction (~2016) Hx of dilation and curettage (1973) Hx of tonsillectomy (1961) Occupational Therapy Inpatient Evaluation/Re-Eval M1 PT/OT-IP Prior Functional Status Start: 09/01/21 14:45 Freq: NEEDED Status: Active Protocol: Document 09/02/21 09:18 [facility] (Rec: 09/02/21 09:34 [facility] [id number]) Medical Review Prior Functional Status Medical History Reviewed Yes Communication able to make needs known Mobility and Gait pt stated that she is independent with all mobilities and ambulation without AD Activities of Daily Living and IADL's Pt was completely independent with all needs but would have pain during all Adl and IADl needs. Social History Household Members spouse Living Arrangements House Number of Floors (Floors) One Floor Number of Stairs To Enter/Railing? 2 steps to enter with R rail ascending Home Environment High Toilet,Tub/Shower Home Equipment Hand Held Shower Additional Social History Comment spouse plans to just assist pt with sponge bathing M2 OT-IP Current Condition Start: 09/02/21 09:18 Freq: Status: Active Protocol: Document 09/02/21 09:18 [facility] (Rec: 09/02/21 09:34 [facility] [id number]) Occupational Therapy Current Condition Current Condition Evaluation Date 09/02/21 Treatment Diagnosis S/p C4-5, C5-6, C 6-7 ACDF Diagnosis Onset Date 09/01/21 Post Operative Precautions Cervical Spine Precautions Soft Collar for Comfort,No Heavy Lifting,Log Roll M3 OT- IP Subjective and Pain Start: 09/02/21 09:18 Freq: Status: Active Protocol: Document 09/02/21 09:18 [facility] (Rec: 09/02/21 09:34 [facility] [id number]) OT- Subjective Occupational Therapy Visit Type Type Initial Evaluation Visit Start Time 08:58 Visit Stop Time 09:23 Total Visit Minutes 25 Occupational Therapy Visit Comments Patient Comments Pt agreed to get up for OT eval and pt's present for caregiver training. Patient/Caregiver Goals To go home. OT Pain Assessment Pain When Pain Assessed At Rest Pain Present Pain Present Pain Reported Location Neck Intensity 6 M4 OT- IP ADL's Start: 09/02/21 09:18 Freq: Status: Active Protocol: Document 09/02/21 09:18 [facility] (Rec: 09/02/21 09:34 [facility] [id number]) OT [id number] Comments OT Self-Feeding Comments Educated to eat upright, softer foods , and chew food thoroughly. OT ADL-Grooming General Evaluation Grooming Ability Minimal Assistance Comments OT Grooming Comments Pt's assisted with her hair. OT ADL-Oral Care General Eval Oral Care Ability Standby Assistance Areas of Assistance Retrieving/Set-Up of Items Comments Oral Care Comments VC to hinge at her hips or just spit into a cup to best follow her cervical precautions. OT ADL-Dressing General Eval Lower Body Dressing Ability Standby Assistance Comments OT Dressing Comments Pt able to comfortably cross her legs in order to do her socks. Pt's states if she is in any discomfort that she will just have her assist. Pt not wanting to use or be shown LB dressing equipment. OT ADL-Toileting Comments OT Toileting Comments Pt states did not have any issues for wiping. Suggested may be beneficial to wear pads initially at night so that she does not have to villegas to the bathroom. OT ADL-Bathing Comments OT Bathing Comments Not performed. M5 OT- IP IADL's Start: 09/02/21:18 Freq: Status: Active Protocol: Document 09/02/21:18 [facility] (Rec: 09/02/21 09:34 [facility] [id number]) OT-Instrumental Activities of Daily Living Home Safety Awareness Ability to Problem Solve Emergency Able to Problem Solve Situations Home Safety Comments Pt's to assist pt for all needs as needed. M6 OT- IP Functional Cognition Start: 09/02/21:18 Freq: Status: Active Protocol: Document 09/02/21:18 [facility] (Rec: 09/02/21 09:34 [facility] [id number]) Cognitive Factors Limiting Selfcare Function Cognitive Ability Level of Alertness Alert Patient Orientation Name,Age,Birthday,Month,Date, Year,Day of Week,Place, Situation Attention Span Ability Capable of Focused Attention, Capable of Sustained Attention Ability to Follow Commands Able to Follow One Step Commands Memory Description No Deficits Noted Safety Awareness Decreased Ability to Apply Precautions,Underestimates Need for Assistance Cognitive Comments Cognitive Assessment Comments Pt just needing reminders not to twist her neck and to move her body and head at the same time. OT- Vision and Hearing OT- Hearing Assessment OT- Hearing Assessment WFL M7 OT- IP Mobility and Balance Start: 09/02/21:18 Freq: Status: Active Protocol: Document 09/02/21:18 [facility] (Rec: 09/02/21 09:34 [facility] [id number]) OT- Bed Mobility Assessment Rolling Type of Rolling Roll to Right Level of Assistance Standby Assistance Supine to Sit Supine to Sit Assist Standby Assistance Sit to Supine Sit to Supine Assist Standby Assistance Scooting Scooting to Edge of Bed Standby Assistance OT-Transfer Assessment Sit to and From Stand Sit to and from Stand Contact Guard Assistance Transfers Transfer Ability Standby Assistance,Contact Guard Assistance Technique Transfer Destination Bed,Chair Transfer Technique Stand Step Pivot Devices Transfer Assistive Devices None,Gait Belt,Front Wheeled Walker Comments Mobility Comments Able to educated pt's how to keturah/doff the gait belt and assist pt as needed. Pt SBA with the FWW and CGA without and suggested best to use the FWW at this time. OT- Gait Assessment Comments Gait Ability Comments SBA/CGA with FWW OT- Balance Assessment Sitting Balance and Reactions Static Sitting Balance Ability Good Dynamic Sitting Balance Ability Good Standing Balance and Reactions Static Standing Balance Ability Fair M8 OT- IP Objective Assessments Start: 09/02/21 09:18 Freq: Status: Active Protocol: Document 09/02/21 09:18 [facility] (Rec: 09/02/21 09:34 [facility] [id number]) OT- Coordination Assessment Comments Coordination Comments Arthritic changes in hands OT-Muscle Tone Assessment Muscle Tone WNL Yes M9 OT- IP Assessment and Plan Start: 09/02/21 09:18 Freq: Status: Active Protocol: Document 09/02/21 09:18 [facility] (Rec: 09/02/21 09:34 [facility] [id number]) OT Summary Assessment and Plan Potential Rehabilitation Potential Excellent Analytic Complexity at Evaluation Low Summary OT Impairments Pain,Balance,Coordination, Functional Mobility,Bathing Progress Towards Goals Progressing Toward Goals Assessment Summary Pt low complexity and able to do caregiver training with her for ADl, collar management, transfers, and bed mobility needs. Pt's able to show good safety and demonstration to be able to assist pt at home. Pt to go home when medically stable. Goals Self-Feeding Goal Independent Grooming Goal Independent Dressing Goal Independent Toileting Goal Independent Bathing Goal Standby Assistance Toilet Transfer Goal Independent Shower Transfer Goal Independent Days to Meet Goals 1 Frequency of Treatment Frequency Of Treatment Once a Day Treatment Plan OT Treatment Plan ADL Training,Functional Mobility,Patient/Family Education,Discharge Planning Discharge Recommendations OT Discharge Recommendations Home with Assistance Home Equipment Needs FWW, shower chair Transportation Needs at Discharge Private Vehicle
--- NOTE | 2021-09-02 09:32 | CM.DANOTE ---
DCP: Case received, EMR reviewed and met with patient. , Phil, was also at bedside. Was able to obtain information regarding patient's baseline activity status prior to hospitalization. Patient is a 75 year old female who admitted yesterday morning to the care of the orthopedic team. PCP: Dr. Gomez. Payer: confirmed: [facility]. Patient came to the hospital for a surgical procedure. She had C3-4, C4-5, C6-7 anterior cervical diskectomy fusion. Patient has history of spinal stenosis of the cervical area. Met with patient in her room. She is pleasant, neck collar in place. Confirmed that at her baseline, she is independent, but has not been able to drive since she has had limited range of motion with her neck. Her spouse, Phil, is very supportive, and just had gotten her a FWW through the [employer]. Both patient and spouse live in [place]. 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 She stated that she works one day a week. P: DCP to continue to follow. Patient should be able to go home when she is medically stable and cleared by P.T. Nelida Amaro RN/Box Sealing Machine Feeder Discharge Planning/Care Management CM Discharge Assessment Start: 09/02/21 09:30 Freq: Status: Active Protocol: Document 09/02/21 09:30 (Rec: 09/02/21 09:32 [id number]) Discharge Planning Assessment Assigned Photograph Developer Nelida Amaro RN/Box Sealing Machine Feeder Advance Directives? No History Provided By Patient,Medical Record Prior Living Arrangements House Household Members spouse Type of transporation used prior to Relies on Others admit Independent with ADL's Yes Is patient alert and oriented? Yes Caregiver for Another No DME Already Rented / Owned FWW / Walker Comment was able to get one through the [employer] Barriers to Discharge No Discharge Plan Home Transportation Arrangement Spouse Referrals Initiated None needed Whiteboard Updated in Patient Room with Yes name and ext. # of Photograph Developer Review Status In Process Next Review Type Continued Stay Review Pre-Anesthesia Assessment Start: 08/05/21 08:45 Freq: Status: Complete Protocol: Document 08/25/21 08:38 [facility] (Rec: 08/05/21 09:47 [facility] [id number]) Pre-Anesthesia Assessment Preferred Name Pedro Patient Information Reviewed Via Phone Assessment Assessment Completed With Patient Comment Labs/EKG done per pt, not here , needs to schedule COVID screen Primary Care Provider Kiko Gomez Medical Clearance Received Yes Seen Specialist in Last 12 Months Yes Specialist Seen Orthopedist,Other Comment PCP pre-op 07/01/21 with clearance scanned Primary Language Uzbek Manufacturing Inspector Required No Height 5 ft 2 in Weight 114 lb Body Mass Index (BMI) 20.8 Hearing Ability Normal Visual Assist Glasses Dentition Type Teeth, Natural Present Barriers to Learning None,Auditory,Cognitive/ Written Hx Anesthesia Reactions No Hx Family Anesthesia Reaction No Hx Malignant Hyperthermia No Hx Blood Transfusions Yes: 1973 r/ hysterectomy Hx Blood Transfusion Reaction No Anesthesia Review Requested No Apprise Counselor No alcohol intake current alcohol intake frequency a few times a month Smoking Status Former smoker how long ago did patient quit smoking Quit 1983 Substance Use Type marijuana Comment Edible, advised not to smoke marijuana 24 hours prior to surgery Pain Present Pain Reported Musculoskeletal Symptoms Difficulty Walking,Joint Pain, Limited Range of Motion,Neck Pain,Tremors History of Falling (Recent or History of No ) Patient is completely paralyzed or No completely immobile Mental Status Oriented to own ability Is patient on oxygen? No Does patient have OVIEDO/SOB Yes: Occasional over last 6 months Hx Sleep Apnea No Currently Taking a Beta Catrina Yes: Metoprolol Can You Climb a Flight of Stairs Without Yes SOB Hx Chest Pain No Hx SOB Yes: Occasional over last 6 months Hx Syncope or Dizziness Yes Anti-Coagulant Therapy No Has a Economics Professor No Cardiac Testing No Hx Pacemaker/ICD No Pacemaker Rep Required? No Cardiac Clearance Received Not Applicable Diet Type At Home Regular dysphagia No Gastrointestinal Symptoms Constipation,Reflux Urinary Catheter Present No Hx Urinary Self Catheterization No Diabetes No Patient No Lactating No Hx Drug Resistant Organism No Presence of External or Internal Medical Yes: Bilat IOLs Devices Have you had any close contact with Yes someone diagnosed with COVID-19? Comment Pt has received both doses of Moderna Marital Status Lives With spouse Prior Living Arrangements House Number of Floors (Floors) One Floor Support System Spouse Does the Patient Have Assistance After Yes Surgery Patient Discharge Plan Description Return Home Comment Pt advised overnight length of stay per surgeon Feels Safe in Current Environment Yes Been Physically Hurt or Threatened By a No Person in Current Environment Do you have thoughts of harming yourself None or others? Are you currently considering suicide? No Do you have a plan to hurt yourself or No Plan others? Do You Have Any Spiritual Beliefs That No May Affect Your HC Choices? Do You Have Any Cultural Practices That No May Affect Your HC Choices? Who Can We Speak to About Patient's Care Family, friends Identifying Code for Release of Patient Declines to issue Information Health Care Proxy/Next of Kin Phil () Health Care Proxy Emergency Contact Name Phil () Emergency Contact or [phone] Advance Directives? No Requested Patient Bring Advanced No Directives DOS Power of Liquor Commissioner Yes Power of Liquor Commissioner Name Phil () Power of Liquor Commissioner or [phone] PAC Instructions Durable medical equipment, Medications to take/avoid, Nasal antibiotic,No ETOH/ petroleum product on skin DOS, NPO,Post-op transportation,Pre -surgical wash,Sturdy shoes/ comfortable clothes,Do not bring valuables and remove jewelry
--- NOTE | 2021-09-02 10:38 | PT.IPTN ---
Current Diagnoses Other spondylosis with radiculopathy, cervical region (09/01/21) Spinal stenosis, cervical region (09/01/21) Surgery Performed Operation Date: 09/01/21 07:45 Actual Procedures p C4-5, C5-6, C6-C7 ACDF with anterior instrumentation - Nicole Cordon MD Physical Therapy Treatment Note M2 PT-IP Current Condition Start: 09/01/21 14:45 Freq: NEEDED Status: Active Protocol: Document 09/01/21 13:00 AB (Rec: 09/01/21 15:03 AB [id number]) Physical Therapy Current Condition Current Condition Evaluation Date 09/01/21 Treatment Diagnosis s/p C4-5, C5-6, C6-7 ACDF; difficulty in walking Onset Date 09/01/21 Precautions Cervical Spine Precautions Soft Collar for Comfort,No Heavy Lifting,Log Roll M3 PT-IP Subjective Start: 09/01/21 14:45 Freq: NEEDED Status: Active Protocol: Document 09/02/21 10:22 CLB (Rec: 09/02/21 12:25 CLB [id number]) Subjective Physical Therapy Visit Type Type Treatment Note Visit Start Time 10:22 Visit Stop Time 10:38 Total Visit Minutes 16 Number of PSYCHOLOGICAL ASSISTANT Visits 1 Physical Therapy Visit Comments Patient Comments pt is agreeable to do PT Therapy Pain Assessment Pain When Pain Assessed At Rest Pain Present Pain Present Pain Reported Location Neck Intensity 6 Scale Used Numeric (0 - 10) Pain Management Techniques Modification of Treatment,Re- positioning,Timing of Activity with Medications M4 PT-IP Mobility and Gait Start: 09/01/21 14:45 Freq: NEEDED Status: Active Protocol: Document 09/02/21 10:22 CLB (Rec: 09/02/21 12:25 CLB [id number]) PT-Bed Mobility Assessment Rolling Type of Rolling Log Rolling Level of Assist Standby Assistance Supine to Sit Supine to Sit Standby Assistance Sit to Supine Sit to Supine Standby Assistance PT-Transfer Assessment Sit to and From Stand Sit to and from Stand Standby Assistance,1 Person Assistance,Use of Upper Extremities Equipment Transfer Assistive Device Gait Belt,Front Wheeled Walker Orthotic/Prosthetic Devices or Brace: Yes Comments Mobility Comments Pt able to get to EOB SBA, pt stood SBA and ambulated in warren ~200ft w/FWW/SBA. Pt climbed three steps SBA then ambulated back to room returning to bed SBA. Left pt in bed with all needs within reach and present. Gait Assessment Gait Gait Assistance Required: Standby Assistance,1 Person Assist Distance (Feet) 200 Able to Maintain Weight Bearing Status Yes During Gait Assistive Devices Assistive Device Gait Belt,Front Wheeled Walker Orthotic/Prosthetic Devices or Brace: Yes Gait Deviations General Gait Pattern Decreased Stride Length, Decreased Feet Clearance Factors Limiting Gait Function Factors Limiting Gait Function Decreased Activity Tolerance, Decreased Strength,Difficulty Following Directions,Limited Range of Motion,Pain,Poor Balance Comments Gait Comments pls refer to mobility section for details Stair Climbing Assessment Evaluation Level of Assist On Stairs Standby Assistance,1 Person Assistance Devices Stair Climbing Assistive Devices Right Railing Technique/Endurance Stair Climbing Direction Ascend and Descend Stair Climbing Technique Step Over Step Number of Steps Climbed 3 Stair Climbing Set # Repetitions (reps) 1 PT-Balance Assessment Sitting Balance and Reactions Static Sitting Balance Ability Good Dynamic Sitting Balance Ability Good Standing Balance and Reactions Static Standing Balance Ability Fair Dynamic Standing Balance Ability Fair Device Used FWW M5 PT-IP Objective Assessments Start: 09/01/21 14:45 Freq: NEEDED Status: Active Protocol: Document 09/01/21 13:00 AB (Rec: 09/01/21 15:03 AB [id number]) Orientation Orientation/Cognition Level of Alertness Alert Orientation Name Language Function Ability No Deficits Noted Safety Awareness Decreased Safety Awareness Memory Description No Deficits Noted Gross Range of Motion Lower Extremity ROM Assessment Within Functional Limits Strength Lower Extremity Strength Assessment Within Functional Limits Sensation Assessment Sensation Gross Sensation WNL Muscle Tone Muscle Tone WNL Yes M6 PT-IP Treatment Start: 09/01/21 14:45 Freq: NEEDED Status: Active Protocol: Document 09/01/21 13:00 AB (Rec: 09/01/21 15:03 AB [id number]) Physical Therapy Treatment Education Education Provided Precautions,Weight Bearing Status,Post-Op Packet,Safety M7 PT-IP Assessment and Plan Start: 09/01/21 14:45 Freq: NEEDED Status: Active Protocol: Document 09/02/21 10:22 CLB (Rec: 09/02/21 12:25 CLB [id number]) PT Summary Assessment and Plan Potential Rehabilitation Potential Fair Status of Condition at Evaluation Evolving Summary Impairments Pain,ROM,Strength,Balance, Coordination,Cognition,Bed Mobility,Transfers,Gait, Activity Tolerance Progress Towards Goals Progressing Toward Goals Assessment Summary Pt is SBA for all mobility. Pt increased gait with FWW ~ 200ft and able to climb stairs SBA. Pt able to assist pt at home upon d/c. Goals Bed Mobility Goal Independent Transfer Goal Independent,Front Wheeled Walker Gait Goal Independent,Front Wheel Walker Gait Distance 200 Other Goals improve ambulation without AD 200 ft SBA up/down 2 steps R rail ascending SBA Days to Meet Goals 5 Frequency of Treatment Frequency Of Treatment Twice a Day Treatment Plan Physical Therapy Treatment Plan Bed Mobility Training,Transfer Training,Gait Training, Therapeutic Exercise,Balance Retraining,Post Op Education, Discharge Planning,Hot or Cold Pack,Neuromuscular Re-ed, Coordination Retraining,Manual Therapy Precautions Cervical Spine Precautions Soft Collar for Comfort,No Heavy Lifting,Log Roll Recommendations To Nursing Amount of Assist Needed 1 Person Assist Discharge Recommendations PT Discharge Recommendations Home with Assistance Transportation Needs at Discharge Private Vehicle
--- NOTE | 2021-09-02 12:10 | PM.DS.1 ---
History of Present Illness History of Present Illness Date Patient Seen: 09/02/21 Time Patient Seen: 12:11 Chief complaint: Neck pain status post ACDF Narrative: Patient is complaining of mild neck pain this morning. She feels like ?her head has been squash on to her neck. ? She is also concerned about a stabbing sensation that radiates from her chest to her spine. She has had this in the past but this is more intense. She denies any pain in her left arm or jaw no pressure in her chest. She does feel like she may have some indigestion and has needed to burp. Otherwise denies fevers, chills, night sweats. No new numbness or tingling. She would like to be discharged home today if she is cleared. Discharge Providers Provider Discharge Date: 09/02/21 Primary care physician: Kiko Gomez DO Consults: 09/01/21 12:08 Consult to Occupational Therapy Evaluate & Treat Comment: Physician Instructions: Evaluate and treat Consult to Physical Therapy Evaluate & Treat Comment: Physician Instructions: Evaluate and Treat Discharge provider: Maya Nguyen PA-C Summary Hospital Course Discharge Diagnosis: 1. C4-5, C5-6, C6-7 spinal stenosis 2. C4-5, C5-6, C6-7 spondylosis with radiculopathy Hospital Course: Procedure: 1.? C4-5 C5-6 C6-7 anterior cervical diskectomy and fusion 2.? C4-5 C5-6 C6-7 anterior interbody cage placement 3.? C4-5 C5-6 C6-7 anterior instrumentation with plate and screw placement in C4-C5-C6 and C7 vertebrae 4.? Utilization of microsurgical technique and operating microscope Same procedure as scheduled: Yes Indications: Patient has been having chronic neck pain and worsening cervical radiculopathy. Patient failed multiple conservative management with worsening pain weakness and numbness in her upper extremity.? Patient has been having difficulty performing activity of daily living.? After discussing risks benefits of treatment options, patient elected proceed with surgery. Surgeon: Nicole Cordon Medical Transcription Supervisor: Maya Nguyen Click Yes if Unassisted: No Operative Notes Closure Type: primary Specimen(s): none sent Prosthetic devices, grafts, tissues, transplants, or devices: Globus Extend plate, PEEK cages Estimated Blood Loss (mL): 5 Blood products transfused: none Status at Discharge Cognitive/behavioral status at discharge: oriented Functional status at discharge: uses cane/walker Overall status at discharge: patient is progressing back to baseline Exam Vital Signs (past 8 hours): - 09/02/21 05:05 09/02/21 09:00 Temperature 97.8 F 98.3 F Pulse Rate 60 67 Respiratory Rate 16 16 Blood Pressure 131/75 135/84 Pulse Oximetry 97 97 Oxygen Delivery Method Nasal Cannula Oxygen Flow Rate 0 Narrative Exam Narrative: Pleasant 75-year-old female, standing in the restroom preparing shower, no acute distress. 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 Insert and dressing is clean, dry, intact. Bilateral upper extremity motor functions are grossly intact. [facility] Medical History Acid reflux Ankle pain (~2012) Anxiety Arrhythmia Arthritis Bipolar disorder Carpal tunnel syndrome Cerebral aneurysm (2015) Chicken pox Depression Essential tremor Fractures (~2017) Headache Heartburn High cholesterol HTN (hypertension) Irregular heartbeat Migraines Mumps Osteoporosis (~1985) Panic attacks Pseudoaneurysm Psoriasis Restless leg syndrome Shoulder pain (~2008) Tinnitus (~1955) Surgical History Anesthesia History of hysterectomy (~1973) History of lumbar surgery (07/2015) History of shoulder surgery (~1995) Hx of bilateral cataract extraction (~2016) Hx of dilation and curettage (1973) Hx of tonsillectomy (1961) Family History Mother History of heart disease COPD (chronic obstructive pulmonary disease) Brother History of heart disease Drug abuse Brother Hypertension Grandfather History of heart disease Stroke Grandmother Stroke Daughter Cancer Family/Other No problems noted. Social History household members: spouse Smoking Status: Former smoker alcohol intake: current Discharge Assessment & Plan Assessment and Plan Assessment: Stable status post ACDF. Chest/Spine stabbing sensation. Plan of Treatment: -order EKG to rule out cardiac pathology. I feel this is likely a acid reflux and will therefore add Protonix. -limit bending, lifting, twisting. Weightbearing as tolerated with front wheel walker -If EKG is within normal limits and she is cleared by Physical therapy, she may DC home today. Discharge Plan Discharge Plan Patient Disposition: Home Discharge orders & Medications Discharge Orders: Discharge (Order); Ordered 09/02/21 Ordered By: Maya Nguyen Prescriptions: New docusate sodium 100 mg Capsule 100 mg PO BID PRN (Reason: constipation) Qty: 20 RF: 0 pantoprazole 20 mg Tablet,Delayed Release (Dr/Ec) 20 mg PO 0700,2100 PRN (Reason: stomach upset) Qty: 60 RF: 0 oxycodone 5 mg Tablet 5 mg PO Q3HR PRN (Reason: Pain, Moderate (4-6)) Qty: 42 RF: 0 hydroxyzine pamoate 25 mg Capsule 25 mg PO Q4HR PRN (Reason: Nausea, aggitation, spasms) Qty: 30 RF: 0 Continued acetaminophen 500 mg Tablet 500 mg PO Q6H PRN (Reason: Pain) RF: 0 tramadol 50 mg tablet 50 mg PO DIRECTED RF: 0 metoprolol tartrate 25 mg tablet 25 mg PO DIRECTED RF: 0 Follow up/Referrals: Nicole Cordon MD [Physician] - (10-14 days for postoperative visit) Kiko Gomez DO [Primary Care Provider] - Diet/Activity/Treatments Diet: Diet as Tolerated and Regular Activity: Limit bending, lifting, twisting. Weightbearing as tolerated with front wheel walker Cold/Heat Therapy: Use ice as needed for pain Skin/Wound/Dressing Care Report to your healthcare provider any signs of infection, such as:: chills, fever, night sweats, unusual drainage and unusual redness Dressing: Okay to shower after 48 hours. Keep dressing in place until postoperative visit. Please call the office if dressing becomes wet, soiled, saturated Visit Report/Discharge Packet Instructions: DI for Anterior Cervical Discectomy and Fusion Stand Alone Forms: Surgery Discharge Discharge Data Primary Care Provider: Kiko Gomez Attending Provider: Nicole Cordon VTE Deep Vein Thrombosis/Pulmonary Embolism Present on Admission: No
[2021-09-02 12:23] VITALS: BP 110/67; PULSE 57; RESP 16; TEMP 36.6; O2SAT 98
[2021-09-02] MEDS: PANTOPRAZOLE DR 20 MG TABLET PO (12:56)
== END 2021-09-02 13:05 | disposition home or self-care (01) ==
LOC: OR 06:10 → AC 06:10
PROVIDERS: Family Provider Family Medicine; PCP Family Medicine; Referring Provider Orthopaedic Surgery Orthopaedic Surgery of the Spine; Visit Provider Orthopaedic Surgery Orthopaedic Surgery of the Spine
PROC: (CPT 22551; principal; 2021-09-01 07:45)
DX: M48.02 Spinal stenosis, cervical region (principal); M47.22 Other spondylosis with radiculopathy, cervical region; Z23 Encounter for immunization; F41.9 Anxiety disorder, unspecified; K21.9 Gastro-esophageal reflux disease without esophagitis; I10 Essential (primary) hypertension; E78.5 Hyperlipidemia, unspecified; G25.81 Restless legs syndrome; G43.909 Migraine, unspecified, not intractable, without status migrainosus
CPT/HCPCS: 22551; 22552 ×2; 22853 ×3; 72040; 76000; 82962; 90471; 90662; 93005; 93010; 97116; 97162; 97165; 97530; 97535; C1776; J0330; J0690; J1100; J1170; J2250; J2405; J2704; J3010

== ENCOUNTER 2022-10-16 08:04 | Emergency (ER) | payer OTHER, SELFPAY ==
[2021-09-01 14:17] VITALS: BMI 20.8
[2022-10-16 08:28] VITALS: BP 149/71; PULSE 87; RESP 18; TEMP 37.4; O2SAT 98; BMI 24.7
--- NOTE | 2022-10-16 08:57 | ED.HA ---
HPI - Headache General Chief Complaint: Headache Stated Complaint: headache/pain in both ears/cough/fever Time Seen by Provider: 10/16/22 08:49 Mode of arrival: Ambulatory History of Present Illness HPI Narrative: Patient here with . Complains of cough congestion sore throat and fever 102.0 at home. Starting yesterday. This has made her right side headache worse. This has been constant for the past 6 or 7 months. She is being followed by a neurologist and ENT as well as being referred to [facility] for this problem. She is had CT scan MRI of the brain for this. At this time unknown source and reason for her dizziness right-sided headache and tinnitus. Yesterday/today's recent illness has made this problem worse. Patient in no distress at this time. Is smiling and interacting very well. Patient has had hydrocodone in the past without difficulty. Related Data Home Medications Medication Instructions Recorded Confirmed acetaminophen 500 mg tablet 500 mg PO Q6H PRN Pain 08/25/21 09/01/21 metoprolol tartrate 25 mg tablet 25 mg PO DIRECTED 09/01/21 09/01/21 tramadol 50 mg tablet 50 mg PO DIRECTED 09/01/21 09/01/21 Previous Rx's Medication Instructions Recorded docusate sodium 100 mg capsule 100 mg PO BID PRN constipation #20 09/02/21 caps hydroxyzine pamoate 25 mg capsule 25 mg PO Q4HR PRN Nausea, 09/02/21 aggitation, spasms #30 caps oxycodone 5 mg tablet 5 mg PO Q3HR PRN Pain, Moderate 09/02/21 (4-6) #42 tabs pantoprazole 20 mg tablet,delayed 20 mg PO 0700,2100 PRN stomach 09/02/21 release upset #60 tabs hydrocodone 5 mg-acetaminophen 325 1 tab PO Q6H PRN pain #10 tabs 10/16/ mg tablet Allergies Allergy/AdvReac Type Severity Reaction Status Date / Time Sulfa (Sulfonamide Allergy Unknown PT DOESN'T Verified 07/08/19 15:09 Antibiotics) RECALL [SULFA (SULFONAMIDE ANTIBIOTICS)] alendronate sodium AdvReac Severe jaw Verified 08/25/21 09:14 [From Fosamax] tightens up indomethacin AdvReac Severe Hallucinating Verified 08/25/21 09:14 when given w/propranolol, tizanidine nortriptyline AdvReac Severe panic Verified 08/25/21 09:14 attack propranolol AdvReac Severe Hallucinating Verified 08/25/21 09:14 when given w/indomethacin, tizanidine tizanidine AdvReac Severe Hallucinating Verified 08/25/21 09:14 when given w/indomethacin, propranolol ibandronate sodium AdvReac Intermediate JOINT Verified 07/08/19 15:09 [From BONIVA] PAIN,WEAKNESS, BOB raloxifene [From Evista] AdvReac Intermediate sore Verified 08/25/21 09:14 muscle, bone ache simvastatin [From Zocor] AdvReac Intermediate panic Verified 08/25/21 09:14 attack, elevated blood pressure [id number] Reductase AdvReac Intermediate JOINT Verified 08/25/21 09:14 Inhibitor PAIN, [[id number] REDUCTASE WEAKNESS, INHIBITOR] zoledronic acid AdvReac Intermediate JOINT Verified 07/08/19 15:09 [From RECLAST] PAIN, WEAKNESS codeine [CODEINE] AdvReac Mild N/V/D Verified 07/08/19 15:09 OSTEOPOROSIS DRUGS Allergy Intermediate JOINT Uncoded 07/08/19 15:09 ACHES AND PAINS Review of Systems Review of Systems Narrative: GENERAL: negative chills, fatigue, malaise, fever, sweats. HEENT: negative sinus pain, positive ear pain, sore throat RESPIRATORY: negative dyspnea, positive cough CARDIOVASCULAR: negative chest pain, palpitations GASTROINTESTINAL: negative nausea, vomiting, abdominal pain : negative dysuria, frequency, hematuria MUSCULOSKELETAL: negative muscle or bony pain SKIN: negative rash, skin lesions NEUROLOGIC: negative weakness, numbness, positive headache positive dizziness ROS Unobtainable: All systems reviewed & are unremarkable except as noted in HPI and below Patient History Medical History Acid reflux Ankle pain (~2012) Anxiety Arrhythmia Arthritis Bipolar disorder Carpal tunnel syndrome Cerebral aneurysm (2015) Chicken pox Depression Essential tremor Fractures (~2017) Headache Heartburn High cholesterol HTN (hypertension) Irregular heartbeat Migraines Mumps Osteoporosis (~1985) Panic attacks Pseudoaneurysm Psoriasis Restless leg syndrome Shoulder pain (~2008) Tinnitus (~1955) Surgical History Anesthesia History of hysterectomy (~1973) History of lumbar surgery (07/2015) History of shoulder surgery (~1995) Hx of bilateral cataract extraction (~2016) Hx of dilation and curettage (1973) Hx of tonsillectomy (1961) Family History Mother History of heart disease COPD (chronic obstructive pulmonary disease) Brother History of heart disease Drug abuse Brother Hypertension Grandfather History of heart disease Stroke Grandmother Stroke Daughter Cancer Family/Other No problems noted. Social History household members: spouse Smoking Status: Former smoker alcohol intake: current Smoking Status: Former smoker alcohol intake frequency: holidays/special occasions only Substance Use Type: does not use Exam Narrative Exam Narrative: GENERAL: in no distress, not toxic not dyspneic HEAD: Normocephalic. EYES: Pupils equal round No scleral icterus. ENT: Mucous membranes moist. Clear bilateral tympanic membranes. Clear bilateral ear canals. No pharyngeal erythema or edema. No exudates. No tongue elevation or drooling. No malocclusion or trismus NECK: Trachea midline. CARDIOVASCULAR: Regular rate and rhythm without murmurs RESPIRATORY: Clear to auscultation. Breath sounds equal bilaterally. No wheezes, rales, or rhonchi. GASTROINTESTINAL: Abdomen soft, non-tender EXTREMITIES: No gross deformities. BACK: No flank tenderness. NEURO: AOx4. SKIN: Warm and dry PSYCH: Not anxious, is cooperative Initial Vital Signs Initial Vital Signs: Vital Signs Temperature 99.4 F 10/16/22 08:28 Pulse Rate 87 10/16/22 08:28 Respiratory Rate 18 10/16/22 08:28 Blood Pressure 149/71 H 10/16/22 08:28 Pulse Oximetry 98 10/16/22 08:28 Oxygen Delivery Method 10/16/22 08:28 Course Course Course Narrative: No new issues during course of stay Orders Ordered: ED Orders 10/16/22 08:27 Covid-19 + FLU A/B + RSV - PCR Stat Discontinued Medications Hydrocodone Bitart/Acetaminophen (Hydrocodone/Acet 5/325 Tablet) 1 tab PO NOW ONE Stop: 10/16/22 08:57 Last Admin: 10/16/22 09:08 Dose: 1 tab Documented By: HINA Ondansetron HCl (Ondansetron 4 Mg Odt) 4 mg SL NOW ONE Stop: 10/16/22 08:57 Last Admin: 10/16/22 09:08 Dose: 4 mg Documented By: HINA Reevaluation(s) Reevaluation #1: Reviewed results with patient. Headache much better after pain medication. She does understand quarantine 10 days. Return precautions reviewed. She does desire short course of pain medication as [id number] medication not helping at this time. Time: 09:58 Vital Signs Vital signs: Vital Signs - 8 hr 10/16/22 08:28 10/16/22 10:07 Temperature 99.4 F Pulse Rate 87 71 Respiratory Rate 18 Blood Pressure 149/71 H Pulse Oximetry 98 98 Oxygen Delivery Method Room Air Room Air MDM - Headache Differential Diagnosis Differential diagnosis: Likely migraine, tension headache and other (Upper respiratory infection) Lab Data Labs: Lab Results 10/16/22 Range/Units 08:27 SARS-CoV-2 (PCR) Positive H (Negative) Influenza A (RT-PCR) Flu a negative (NEGATIVE) Influenza B (RT-PCR) Flu b negative (NEGATIVE) RSV (PCR) Negative (Negative) Point of Care Testing Rapid Strep A Negative MDM Narrative Medical decision making narrative: Appropriate for discharge home. Exam and laboratory reassuring. No blood work or imaging indicated. Patient requiring supplemental oxygen. Appropriate for pain medication prescription has patient has chronic right-sided headache has been exacerbated by COVID infection. Short course of pain medication appropriate. Return precautions reviewed with patient and . They desire discharge home. Discharge Plan Departure Patient Disposition: Home Clinical Impression: COVID-19 Instructions: COVID-19 Activity Restrictions/Additional Instructions: Please quarantine 10 days starting from your 1st day of symptoms. See family doctor in a week for re-evaluation. No driving operating machinery when taking prescribed medication. May supplement with ibuprofen for fever. Return if worse if any questions or concerns. Prescriptions: New hydrocodone-acetaminophen 5-325 mg tablet 1 tab PO Q6H PRN (Reason: pain) Qty: 10 0RF No Action acetaminophen 500 mg Tablet 500 mg PO Q6H PRN (Reason: Pain) tramadol 50 mg tablet 50 mg PO DIRECTED metoprolol tartrate 25 mg tablet 25 mg PO DIRECTED docusate sodium 100 mg Capsule 100 mg PO BID PRN (Reason: constipation) Qty: 20 0RF pantoprazole 20 mg Tablet,Delayed Release (Dr/Ec) 20 mg PO 0700,2100 PRN (Reason: stomach upset) Qty: 60 0RF oxycodone 5 mg Tablet 5 mg PO Q3HR PRN (Reason: Pain, Moderate (4-6)) Qty: 42 0RF hydroxyzine pamoate 25 mg Capsule 25 mg PO Q4HR PRN (Reason: Nausea, aggitation, spasms) Qty: 30 0RF Referrals: Arelis Daniels PA-C [Primary Care Provider] - Visit Report Forms: Patient Portal/API
[2022-10-16] MEDS: ONDANSETRON 4 MG ODT SL (09:08)
[2022-10-16] MEDS: HYDROCODONE/ACET 5/325 TABLET 1 TAB PO (09:08)
[2022-10-16 09:18] LABS: Influenza A - CEPHEID Flu A NEGATIVE (NEGATIVE); Influenza B - CEPHEID Flu B NEGATIVE (NEGATIVE); Respiratory Syncytial Virus Negative (Negative)
[2022-10-16 09:36] LABS: COVID-19 CEPHEID 4-PLEX PCR POSITIVE (Negative)
[2022-10-16 10:07] VITALS: PULSE 71; O2SAT 98
== END 2022-10-16 10:08 | disposition home or self-care (01) ==
PROVIDERS: Emergency Provider Emergency Medicine; Family Provider Family Medicine; PCP Physician Assistant
DX: U07.1 COVID-19 (principal)
CPT/HCPCS: 0241U; 87880; 99283

== ENCOUNTER → 2024-07-29 15:06 | Outpatient (CLI) | payer OTHER, SELFPAY ==
[2021-09-01 14:17] VITALS: BMI 20.8
--- NOTE | 2024-07-29 22:20 | DI.NM.S_ITS ---
DATE OF SERVICE: 07/29/2024 PROCEDURE: Exercise treadmill stress test without imaging. ORDERING PROVIDER: Domingo Medina MD INDICATIONS: The patient is a 78-year-old female with peripheral vascular disease, atypical chest discomfort, and exertional dyspnea. FINDINGS: 1. The patient was able to exercise for 9 minutes and 2 seconds on a standard Elio protocol suggesting exceptional exercise capacity with an SERG of -73%, achieving 8.9 METS. 2. She had a normal heart rate and blood pressure response to exercise, achieving a maximum heart rate of 127 BPM (89% of predicted maximum). 3. She had no chest discomfort or other anginal symptoms. 4. Her resting ECG shows sinus rhythm with normal ST segments. There are no significant ST-segment shifts or arrhythmias with the stress. IMPRESSION: 1. Normal exercise treadmill stress test for ischemia. 2. Exceptional exercise capacity without angina or arrhythmias. Celina Parsons - RS/fn/AY doc#: [id number]/job#: [id number] dd: 07/29/2024 16:50:00 dt: 07/29/2024 21:01:00 DICTATING /COPIES TO: Mark Kiran MD; Domingo Medina MD COPIES MNE: JOSE;
== END ==
LOC: RAD 15:07
PROVIDERS: Family Provider Family Medicine; PCP Physician Assistant Medical; Referring Provider Internal Medicine Cardiovascular Disease; Visit Provider Internal Medicine Cardiovascular Disease
DX: R07.2 Precordial pain (principal); R00.2 Palpitations; R06.02 Shortness of breath; I73.9 Peripheral vascular disease, unspecified; R06.00 Dyspnea, unspecified
CPT/HCPCS: 93017

== ENCOUNTER 2025-03-17 11:54 | Emergency (ER) | payer OTHER, SELFPAY ==
[2021-09-01 14:17] VITALS: BMI 20.8
[2025-03-17 12:07] VITALS: BP 135/70; PULSE 59; RESP 18; TEMP 36.1; O2SAT 99; BMI 22.8
--- NOTE | 2025-03-17 12:13 | DI.RAD.S_ITS ---
PROCEDURE: XR SHOULDER RT MIN 2V INDICATIONS: Shoulder pain for months TECHNIQUE: 3 views of the shoulder were acquired. COMPARISON: None. FINDINGS: Bones: No acute fractures or dislocations. No suspicious bony lesions. Visualized ribs appear intact. Likz-gs-goprjurt degenerative changes at the acromioclavicular joint. Soft tissues: No suspicious soft tissue calcifications. IMPRESSION: No acute osseous abnormality. If there is continued clinical concern or persistent symptoms, repeat radiographs or cross-sectional imaging (e.g. CT, MRI) may be helpful for further evaluation. Approved by: Chivo Soni M.D. on 03/17/2025 at 12:50
--- NOTE | 2025-03-17 12:17 | ED.UPPEXIN ---
HPI - Extremity Injury (Upper) <Kellee Delgado PA-C - Last Filed: 03/17/25 16:22> General Chief Complaint: Extremity Injury, Upper Stated Complaint: shoulder px lasting a few months Time Seen by Provider: 03/17/25 12:17 Source: patient Mode of arrival: Ambulatory History of Present Illness HPI narrative: 79-year-old female presents to the ED with 3 months of worsening right-sided shoulder pain. 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 Patient also suffered a fall about a month ago, saw her chiropractor for worsening right shoulder pain. Patient states that she was told that her shoulder was dislocated, the shoulder was reduced. No x-rays or other imaging performed at that time. Since then, patient has had worsening right shoulder pain. Patient is today unable to extend or flex her elbow without severe pain. Patient's range of motion of the shoulder is very limited due to pain. Patient is also complaining about intermittent numbness, tingling. No weakness. It appears that patient has continued her daily activities with the rocks etc. and has not given the injury a rest. Related Data Home Medications Medication Instructions Recorded Confirmed acetaminophen 500 mg tablet 500 mg PO Q6H PRN Pain 08/25/21 09/01/21 metoprolol tartrate 25 mg tablet 25 mg PO DIRECTED 09/01/21 09/01/21 tramadol 50 mg tablet 50 mg PO DIRECTED 09/01/21 09/01/21 Previous Rx's Medication Instructions Recorded docusate sodium 100 mg capsule 100 mg PO BID PRN constipation #20 09/02/21 caps hydroxyzine pamoate 25 mg capsule 25 mg PO Q4HR PRN Nausea, 09/02/21 aggitation, spasms #30 caps oxycodone 5 mg tablet 5 mg PO Q3HR PRN Pain, Moderate 09/02/21 (4-6) #42 tabs pantoprazole 20 mg tablet,delayed 20 mg PO 0700,2100 PRN stomach 09/02/21 release upset #60 tabs hydrocodone 5 mg-acetaminophen 325 1 tab PO Q6H PRN pain #10 tabs 11/27/22 mg tablet Allergies Allergy/AdvReac Type Severity Reaction Status Date / Time Sulfa (Sulfonamide Allergy Unknown PT DOESN'T Verified 07/08/19 15:09 Antibiotics) RECALL [SULFA (SULFONAMIDE ANTIBIOTICS)] alendronate sodium AdvReac Severe jaw Verified 08/25/21 09:14 [From Fosamax] tightens up indomethacin AdvReac Severe Hallucinating Verified 08/25/21 09:14 when given w/propranolol, tizanidine nortriptyline AdvReac Severe panic Verified 08/25/21 09:14 attack propranolol AdvReac Severe Hallucinating Verified 08/25/21 09:14 when given w/indomethacin, tizanidine tizanidine AdvReac Severe Hallucinating Verified 08/25/21 09:14 when given w/indomethacin, propranolol ibandronate sodium AdvReac Intermediate JOINT Verified 07/08/19 15:09 [From BONIVA] PAIN,WEAKNESS, BOB raloxifene [From Evista] AdvReac Intermediate sore Verified 08/25/21 09:14 muscle, bone ache simvastatin [From Zocor] AdvReac Intermediate panic Verified 08/25/21 09:14 attack, elevated blood pressure [id number] Reductase AdvReac Intermediate JOINT Verified 08/25/21 09:14 Inhibitor PAIN, [[id number] REDUCTASE WEAKNESS, INHIBITOR] zoledronic acid AdvReac Intermediate JOINT Verified 07/08/19 15:09 [From RECLAST] PAIN, WEAKNESS codeine [CODEINE] AdvReac Mild N/V/D Verified 07/08/19 15:09 OSTEOPOROSIS DRUGS Allergy Intermediate JOINT Uncoded 07/08/19 15:09 ACHES AND PAINS Review of Systems <Kellee Delgado PA-C - Last Filed: 03/17/25 16:22> Constitutional Constitutional: Denies chills, Denies fatigue, Denies fever(s), Denies frequent falls, Denies lethargy and Denies weakness Eyes Eyes: Denies change in vision, Denies eye discharge, Denies irritation and Denies loss of vision ENT Ears, Nose, Mouth, and Throat: Denies change in voice, Denies dizziness, Denies neck pain, Denies sore throat and Denies throat swelling Cardiovascular Cardiovascular: Denies chest pain, Denies irregular heart rhythm, Denies lightheadedness, Denies palpitations, Denies dyspnea, Denies dyspnea on exertion and Denies orthopnea Respiratory Respiratory: Denies cough, Denies dyspnea, Denies dyspnea on exertion and Denies wheezing Gastrointestinal Gastrointestinal: Denies abdominal pain, Denies change in bowel habits, Denies diarrhea, Denies nausea and Denies vomiting Musculoskeletal Musculoskeletal: Denies neck pain and Denies numbness Integumentary/Breasts Skin/Breast: Denies pruritus, Denies erythema, Denies rash and Denies wounds Neurologic Neurologic: Denies behavioral changes, Denies confusion, Denies dizziness, Denies frequent falls, Denies loss of vision, Denies numbness and Denies weakness Psychiatric Psychiatric: Denies anxiety, Denies behavioral changes, Denies confusion, Denies depression, Denies homicidal ideation and Denies suicidal ideation Endocrine Endocrine: Denies fatigue, Denies flushing and Denies palpitations Hematologic/Lymphatic Hematologic/Lymphatic: Denies easy bruising Allergic/Immunologic Allergic/Immunologic: Denies urticaria, Denies throat swelling and Denies wheezing Patient History <Kellee Delgado PA-C - Last Filed: 03/17/25 16:22> Medical History Bipolar disorder Psoriasis Arthritis Heartburn Arrhythmia HTN (hypertension) Essential tremor Pseudoaneurysm Panic attacks Acid reflux High cholesterol Irregular heartbeat Depression Anxiety Restless leg syndrome Migraines Headache Shoulder pain (~2008) Osteoporosis (~1985) Fractures (~2017) Carpal tunnel syndrome Ankle pain (~2012) Mumps Chicken pox Tinnitus (~1955) Cerebral aneurysm (2015) Surgical History Hx of dilation and curettage (1973) Hx of bilateral cataract extraction (~2016) History of lumbar surgery (07/2015) Hx of tonsillectomy (1961) Anesthesia History of hysterectomy (~1973) History of shoulder surgery (~1995) Family History Mother History of heart disease COPD (chronic obstructive pulmonary disease) Brother History of heart disease Drug abuse Brother Hypertension Grandfather History of heart disease Stroke Grandmother Stroke Daughter Cancer Family/Other No problems noted. Social History household members: spouse Smoking Status: Never smoker alcohol intake: current Smoking Status: Never smoker alcohol intake frequency: holidays/special occasions only Exam <Kellee Delgado PA-C - Last Filed: 03/17/25 16:22> Narrative Exam Narrative: Const General:?cooperative, healthy appearing and comfortable [facility] Head:?normal to inspection Ears:?hearing grossly normal bilaterally Nose:?external nose normal Face and sinus:?normal facial exam and sinuses nontender Mouth:?oral mucosae normal Throat:?posterior oropharynx normal Eyes General:?appearance normal, both eyes and all related structures Neck Neck:?normal visual inspection and no lymphadenopathy noted Resp Effort & Inspection:?normal respiratory effort Auscultation:?clear to auscultation bilaterally Cardio Rate:?regular rate Rhythm:?regular rhythm Neuro General:?patient alert, patient awake and patient oriented x3 Initial Vital Signs Initial Vital Signs: Vital Signs Temperature 96.9 F L 03/17/25 12:07 Pulse Rate 59 L 03/17/25 12:07 Respiratory Rate 18 03/17/25 12:07 Blood Pressure 135/70 03/17/25 12:07 Pulse Oximetry 99 03/17/25 12:07 Oxygen Delivery Method Room Air 03/17/25 12:07 <Radha Jacobs DO - Last Filed: 03/23/25 09:05> Initial Vital Signs Initial Vital Signs: Vital Signs Temperature 96.9 F L 03/17/25 12:07 Pulse Rate 59 L 03/17/25 12:07 Respiratory Rate 18 03/17/25 12:07 Blood Pressure 135/70 03/17/25 12:07 Pulse Oximetry 99 03/17/25 12:07 Oxygen Delivery Method Room Air 03/17/25 12:07 Course <Kellee Delgado PA-C - Last Filed: 03/17/25 16:22> Orders Ordered: Discontinued Medications Hydrocodone Bitart/Acetaminophen (Hydrocodone/Acet 5/325 Tablet) 1 tab PO NOW ONE Stop: 03/17/25 12:40 Last Admin: 03/17/25 12:43 Dose: 1 tab Documented By: MORENA Lidocaine (Lidocaine 5% Patch) 1 each TOP NOW ONE Stop: 03/17/25 15:56 Last Admin: 03/17/25 16:11 Dose: Not Given Documented By: MORENA Vital Signs Vital signs: Vital Signs - 8 hr 03/17/25 12:07 03/17/25 12:44 Temperature 96.9 F L Pulse Rate 59 L Pulse Rate [Right Radial] 68 Respiratory Rate 18 Blood Pressure 135/70 Pulse Oximetry 99 Oxygen Delivery Method Room Air <Radha Jacobs DO - Last Filed: 03/23/25 09:05> Orders Ordered: Discontinued Medications Hydrocodone Bitart/Acetaminophen (Hydrocodone/Acet 5/325 Tablet) 1 tab PO NOW ONE Stop: 03/17/25 12:40 Last Admin: 03/17/25 12:43 Dose: 1 tab Documented By: MORENA Lidocaine (Lidocaine 5% Patch) 1 each TOP NOW ONE Stop: 03/17/25 15:56 Last Admin: 03/17/25 16:11 Dose: Not Given Documented By: RB Vital Signs Vital signs: Vital Signs - 8 hr 03/17/25 12:07 03/17/25 12:44 Temperature 96.9 F L Pulse Rate 59 L Pulse Rate [Right Radial] 68 Respiratory Rate 18 Blood Pressure 135/70 Pulse Oximetry 99 Oxygen Delivery Method Room Air MDM - Extremity Injury (Upper) <Kellee Delgado PA-C - Last Filed: 03/17/25 16:22> [facility] Narrative Medical decision making narrative: 79-year-old female presents to the ED with 3 months of worsening right-sided shoulder pain. X-ray was obtained to rule out bony abnormality. Shoulder x-ray shows no acute osseous abnormality. There is [id number] degenerative changes at the acromioclavicular joint. Given patient's severity of pain and limited range of motion, an MRI was obtained. MRI shows the following: IMPRESSION: 1. Low to moderate grade articular and bursal surface partial thickness tear involving distal supraspinatus extending to musculotendinous junction. Mild supraspinatus muscle atrophy. 2. Low-grade articular surface partial-thickness tear involving distal infraspinatus. Low-grade intrasubstance partial-thickness tear involving distal subscapularis. No full-thickness rotator cuff tendon rupture. Mild supraspinatus muscle atrophy. 3. Moderate acromioclavicular joint osteoarthritis. Decc-hc-hwuraqaa glenohumeral joint osteoarthritis. No fracture or dislocation. Small to moderate joint effusion and subacromial subdeltoid bursal fluid, no loose bodies. 4. Finding is suggestive of subtle superior anterior glenoid labral tear. 5. Low-grade intrasubstance partial-thickness tear involving proximal intra-articular portion of long head of biceps. Dictated by: Lokesh Andersen M.D. on 03/17/2025 at 14:58 Approved by: Lokesh Andersen M.D. on 03/17/2025 at 15:01 Discussed findings with patient. Patient was fitted with a sling, lidocaine patch was applied. Recommend taking Tylenol for pain, applying lidocaine patches, heat/ice for comfort. Recommend follow-up with ortho as soon as possible. Resting the to aid healing. ED return precautions were discussed with patient. Patient verbalized understanding. Medical records reviewed: Yes Discharge Plan Departure Patient Disposition: Home Clinical Impression: Right shoulder pain Qualifiers: Chronicity: acute Qualified Code(s): M25.511 - Pain in right shoulder Instructions: DI for Shoulder Sprain Activity Restrictions/Additional Instructions: You were evaluated in the ED today for right-sided shoulder pain. Your x-ray does not show any fractures or dislocations. We were able to obtain an MRI of the shoulder today which does show some soft tissue injuries including the rotator cuff and a glenoid labral tear. You have been provided a sling for comfort. It is advised that you rest that arm and shoulder as much as possible to aid healing. Please follow-up with [facility] at [phone] as soon as possible for further evaluation. You may take Tylenol for pain control. You may also apply lidocaine patches which are available [id number]. You may apply heat packs or ice packs for comfort. Return to the ED if you have worsening symptoms, numbness, tingling, weakness. Prescriptions: No Action hydrocodone-acetaminophen 5-325 mg tablet 1 tab PO Q6H PRN (Reason: pain) Qty: 10 0RF acetaminophen 500 mg Tablet 500 mg PO Q6H PRN (Reason: Pain) tramadol 50 mg tablet 50 mg PO DIRECTED metoprolol tartrate 25 mg tablet 25 mg PO DIRECTED docusate sodium 100 mg Capsule 100 mg PO BID PRN (Reason: constipation) Qty: 20 0RF pantoprazole 20 mg Tablet,Delayed Release (Dr/Ec) 20 mg PO 0700,2100 PRN (Reason: stomach upset) Qty: 60 0RF oxycodone 5 mg Tablet 5 mg PO Q3HR PRN (Reason: Pain, Moderate (4-6)) Qty: 42 0RF hydroxyzine pamoate 25 mg Capsule 25 mg PO Q4HR PRN (Reason: Nausea, aggitation, spasms) Qty: 30 0RF Referrals: Toña Monsalve PA-C [Primary Care Provider] - Stand Alone Forms: Patient Portal/API/Survey ED Sign-out <Radha Jacobs DO - Last Filed: 03/23/25 09:05> Cosign ED Attending Cosignature Attestation: I was available for consultation.
[2025-03-17] MEDS: HYDROCODONE/ACET 5/325 TABLET 1 TAB PO (12:43)
[2025-03-17 12:44] VITALS: PULSE 68
--- NOTE | 2025-03-17 13:18 | DI.MRI.S_ITS ---
PROCEDURE: MR SHOULDER RT WO CON INDICATIONS: Right shoulder pain TECHNIQUE: Noncontrast oblique coronal T2 fast spin echo with fat saturation, oblique sagittal T1 spin echo and T2 fast spin echo with fat saturation, axial T1 spin echo and T2 fast spin echo with fat saturation through the shoulder. COMPARISON: None. FINDINGS: Image quality: Excellent. Rotator cuff: Low to moderate grade articular and bursal surface partial thickness tear involving anterior to mid fibers of distal supraspinatus at its insertion on humeral head is seen extending to musculotendinous junction. Low-grade articular surface partial-thickness tear involving distal infraspinatus at its insertion on the humeral head. Low-grade intrasubstance partial-thickness tear involving distal subscapularis is also noted. No full-thickness rotator cuff tendon rupture. Sagittal images demonstrate mild supraspinatus muscle atrophy. Bones and bursae: No bone marrow contusions or fractures. Moderate acromioclavicular joint osteoarthritic changes are seen with joint space narrowing and downward osteophyte formation depressing the musculotendinous junction of supraspinatus. Lnil-bi-jeuokbru glenohumeral joint osteoarthritic changes also seen. Type 2 acromion without an os acromiale. Small to moderate amount of joint effusion and subacromial subdeltoid bursal fluid is seen, no loose bodies. Capsule and soft tissues: There is fraying of superior anterior glenoid labrum with T2 hyperintense signal consistent with superior anterior glenoid labral tear. Low-grade partial-thickness tear involving proximal intra-articular portion of long head of biceps tendon is seen. IMPRESSION: 1. Low to moderate grade articular and bursal surface partial thickness tear involving distal supraspinatus extending to musculotendinous junction. Mild supraspinatus muscle atrophy. 2. Low-grade articular surface partial-thickness tear involving distal infraspinatus. Low-grade intrasubstance partial-thickness tear involving distal subscapularis. No full-thickness rotator cuff tendon rupture. Mild supraspinatus muscle atrophy. 3. Moderate acromioclavicular joint osteoarthritis. Dehl-bh-vmpnvjht glenohumeral joint osteoarthritis. No fracture or dislocation. Small to moderate joint effusion and subacromial subdeltoid bursal fluid, no loose bodies. 4. Finding is suggestive of subtle superior anterior glenoid labral tear. 5. Low-grade intrasubstance partial-thickness tear involving proximal intra-articular portion of long head of biceps. Dictated by: Lokesh Andersen M.D. on 03/17/2025 at 14:58 Approved by: Lokesh Andersen M.D. on 03/17/2025 at 15:01
[2025-03-17 16:22] VITALS: BP 142/68; PULSE 76; RESP 20; TEMP 36.6; O2SAT 99
== END 2025-03-17 16:15 | disposition home or self-care (01) ==
PROVIDERS: Emergency Provider Student in an Organized Health Care Education/Training Program; Family Provider Family Medicine; PCP Physician Assistant Medical
DX: M25.511 Pain in right shoulder (principal)
CPT/HCPCS: 73030; 73221; 99283

== ENCOUNTER 2025-05-07 12:46 | Emergency (ER) | payer OTHER, SELFPAY ==
[2021-09-01 14:17] VITALS: BMI 20.8
[2025-05-07] VITALS (16 sets, daily range): BP systolic 139–193; BP diastolic 71–91; PULSE 50–58; RESP 11–24; TEMP 36.3; O2SAT 96–100; BMI 22.8
--- NOTE | 2025-05-07 13:07 | EKG_ITS ---
[address] [address] Test Date: 2025-05-07 Pat Name: Celina Parsons Department: Room: Gender: Female Perpetual Inventory Clerk: PHUONG : 1945 Requested By: Order Number: [id number] Reading MD: Familia Rivera MD Measurements Intervals [place] Rate: 56 P: 17 [place]: QRS: -5 QRSD: 84 T: 29 QT: 418 QTc: 403 Interpretive Statements Atrial flutter Electronically Signed On 05-08-2025 7:34:42 PDT by Familia Rivera MD
--- NOTE | 2025-05-07 13:07 | DI.RAD.S_ITS ---
PROCEDURE: XR CHEST 1V INDICATIONS: Chest Pain TECHNIQUE: One view of the chest was acquired. COMPARISON: None. FINDINGS: Surgical changes and devices: Cervical spinal fusion hardware is present. Lungs and pleura: Lungs are clear. No pleural effusions or pneumothorax. Mediastinum: Mediastinal contours appear normal. Heart size is normal. Bones and chest wall: No suspicious bony lesions. Overlying soft tissues appear unremarkable. IMPRESSION: No acute cardiopulmonary abnormality is seen. Approved by: Chivo Soni M.D. on 05/07/2025 at 14:02
--- NOTE | 2025-05-07 13:11 | ED.WEAKNESS ---
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 Patient denies dizziness, blurred vision, chest pain cough runny nose sore throat nausea vomiting diarrhea back neck pain bowel bladder incontinence fever chills rash sick contacts. Other than propranolol she has not taken anything else to help her symptoms Related Data Home Medications ?Medication ?Instructions ?Recorded ?Confirmed acetaminophen 500 mg tablet 500 mg PO Q6H PRN Pain 08/25/21 09/01/21 metoprolol tartrate 25 mg tablet 25 mg PO DIRECTED 09/01/21 09/01/21 tramadol 50 mg tablet 50 mg PO DIRECTED 09/01/21 09/01/21 Previous Rx's ?Medication ?Instructions ?Recorded docusate sodium 100 mg capsule 100 mg PO BID PRN constipation #20 09/02/21 caps hydroxyzine pamoate 25 mg capsule 25 mg PO Q4HR PRN Nausea, 09/02/21 aggitation, spasms #30 caps oxycodone 5 mg tablet 5 mg PO Q3HR PRN Pain, Moderate 09/02/21 (4-6) #42 tabs pantoprazole 20 mg tablet,delayed 20 mg PO 0700,2100 PRN stomach 09/02/21 release upset #60 tabs hydrocodone 5 mg-acetaminophen 325 1 tab PO Q6H PRN pain #10 tabs 11/27/22 mg tablet hydrochlorothiazide 12.5 mg tablet 12.5 mg PO DAILY #30 tabs 05/07/25 Allergies Allergy/AdvReac Type Severity Reaction Status Date / Time Sulfa (Sulfonamide Allergy Unknown PT DOESN'T Verified 05/07/25 13:13 Antibiotics) (SULFA RECALL (SULFONAMIDE ANTIBIOTICS)) alendronate sodium (From AdvReac Severe jaw Verified 05/07/25 13:13 Fosamax) tightens up indomethacin AdvReac Severe Hallucinating Verified 05/07/25 13:13 when given w/propranolol, tizanidine nortriptyline AdvReac Severe panic Verified 05/07/25 13:13 attack propranolol AdvReac Severe Hallucinating Verified 05/07/25 13:13 when given w/indomethacin, tizanidine tizanidine AdvReac Severe Hallucinating Verified 05/07/25 13:13 when given w/indomethacin, propranolol ibandronate sodium (From AdvReac Intermediate JOINT Verified 05/07/25 13:13 BONIVA) PAIN,WEAKNESS, BOB raloxifene (From Evista) AdvReac Intermediate sore Verified 05/07/25 13:13 muscle, bone ache simvastatin (From Zocor) AdvReac Intermediate panic Verified 05/07/25 13:13 attack, elevated blood pressure Aezygaa-FKO-KuI Reductase AdvReac Intermediate JOINT Verified 05/07/25 13:13 Inhibitor ([id number] PAIN, REDUCTASE INHIBITOR) WEAKNESS, zoledronic acid (From AdvReac Intermediate JOINT Verified 05/07/25 13:13 RECLAST) PAIN, WEAKNESS codeine (CODEINE) AdvReac Mild N/V/D Verified 05/07/25 13:13 OSTEOPOROSIS DRUGS Allergy Intermediate JOINT Uncoded 05/07/25 13:13 ACHES AND PAINS Patient History Medical History Bipolar disorder Psoriasis Arthritis Heartburn Arrhythmia HTN (hypertension) Essential tremor Pseudoaneurysm Panic attacks Acid reflux High cholesterol Irregular heartbeat Depression Anxiety Restless leg syndrome Migraines Headache Shoulder pain (~2008) Osteoporosis (~1985) Fractures (~2017) Carpal tunnel syndrome Ankle pain (~2012) Mumps Chicken pox Tinnitus (~1955) Cerebral aneurysm (2015) Surgical History Hx of dilation and curettage (1973) Hx of bilateral cataract extraction (~2016) History of lumbar surgery (07/2015) Hx of tonsillectomy (1961) Anesthesia History of hysterectomy (~1973) History of shoulder surgery (~1995) Family History Mother History of heart disease COPD (chronic obstructive pulmonary disease) Brother History of heart disease Drug abuse Brother Hypertension Grandfather History of heart disease Stroke Grandmother Stroke Daughter Cancer Family/Other No problems noted. Social History household members: spouse Smoking Status: Former smoker alcohol intake: current alcohol intake frequency: holidays/special occasions only Exam Initial Vital Signs Initial Vital Signs: Vital Signs Temperature 97.4 F L 05/07/25 13:13 Pulse Rate 58 L 05/07/25 13:13 Respiratory Rate 17 05/07/25 13:13 Blood Pressure 193/91 H 05/07/25 13:13 Pulse Oximetry 100 05/07/25 13:13 Oxygen Delivery Method Room Air 05/07/25 13:13 Scores HEART Score Heart Score history: Slightly Suspicious Heart Score EKG: Normal Heart Score Age: > or = 65 years old Heart Score risk factors: 1-2 risk factors Heart Score troponin: < or = to normal limit Heart Score Total: 3 Course Orders Ordered: ED Orders 05/07/25 12:56 Complete Blood Count AUTO DIFF Stat Comprehensive Metabolic Panel Stat Lipase Stat Magnesium Stat NT-proBNP (BNP-Adult 18+) Stat PTT Partial Thromboplastin Hung Stat Prothrombin Time INR Stat Troponin & CK Cardiac Panel Stat 05/07/25 13:07 XR chest 1V Stat EKG-12 Lead Stat 05/07/25 13:19 CT angio head and neck Stat CT head/brain wo con Stat 05/07/25 14:13 EKG-12 Lead Stat Vital Signs Vital signs: Vital Signs - 8 hr 05/07/25 13:13 05/07/25 13:13 05/07/25 13:19 Temperature 97.4 F L Pulse Rate 58 L 55 L 54 L Respiratory Rate 17 15 Blood Pressure 193/91 H Pulse Oximetry 100 100 100 Oxygen Delivery Method Room Air 05/07/25 13:19 05/07/25 13:30 05/07/25 13:30 Temperature Pulse Rate 50 L Respiratory Rate Blood Pressure 185/88 H 152/80 H Pulse Oximetry 99 Oxygen Delivery Method 05/07/25 14:00 05/07/25 14:00 05/07/25 14:12 Temperature Pulse Rate 52 L 54 L Respiratory Rate 19 13 Blood Pressure 165/91 H Pulse Oximetry 99 100 Oxygen Delivery Method 05/07/25 14:12 05/07/25 14:30 05/07/25 14:30 Temperature Pulse Rate 52 L Respiratory Rate 12 Blood Pressure 160/81 H 141/75 H Pulse Oximetry 100 Oxygen Delivery Method 05/07/25 15:00 05/07/25 15:00 05/07/25 15:30 Temperature Pulse Rate 51 L 52 L Respiratory Rate 11 L 15 Blood Pressure 160/74 H Pulse Oximetry 98 98 Oxygen Delivery Method 05/07/25 15:30 05/07/25 16:00 05/07/25 16:00 Temperature Pulse Rate 51 L Respiratory Rate Blood Pressure 167/79 H 153/79 H Pulse Oximetry 99 Oxygen Delivery Method 05/07/25 16:30 05/07/25 16:30 05/07/25 17:00 Temperature Pulse Rate 51 L 51 L Respiratory Rate 16 12 Blood Pressure 161/79 H Pulse Oximetry 99 98 Oxygen Delivery Method 05/07/25 17:00 05/07/25 17:30 05/07/25 17:30 Temperature Pulse Rate 53 L Respiratory Rate 18 Blood Pressure 147/74 H 157/79 H Pulse Oximetry 98 Oxygen Delivery Method MDM - Weakness Lab Data 05/07/25 12:56 05/07/25 12:56 Labs: Lab Results 05/07/25 Range/Units 12:56 WBC 11.2 H (4.5-11.0) X10^3/uL RBC 4.52 (4.0-5.2) X10^6/uL Hgb 14.3 (12.0-16.0) g/dL Hct 43.3 (36-46) % MCV 95.8 (80-100) fL MCH 31.6 (26-34) PG MCHC 33.0 (30-36) % RDW 13.4 (11.6-14.8) % Plt Count 240 (150-400) X10^3/uL Neut % (Auto) 73.5 (50-75) % Lymph % (Auto) 15.5 L (25-40) % [place] % (Auto) 8.5 (3-14) % Eos % (Auto) 1.7 L (2-4) % Baso % (Auto) 0.8 (0-2) % Neut # (Auto) 8300 H (6797-7399) /uL Lymph # (Auto) 1700 (4589-2968) /uL [place] # (Auto) 1000 H (0-900) /uL Eos # (Auto) 200 (0-450) /uL Baso # (Auto) 100 (0-100) /uL PT 11.5 (9.4-12.5) SECONDS INR 1.0 (0.9-1.3) APTT 36 (25.1-36.5) SECONDS Sodium 137 (137-145) mmol/L Potassium 4.2 (3.4-5.1) mmol/L Chloride 103 (98-107) mmol/L Carbon Dioxide 26 (22-32) mmol/L BUN 17 (7-17) mg/dL Creatinine 0.90 (0.52-1.04) mg/dL Estimated GFR > 60 (>60) mL/min BUN/Creatinine Ratio 18.9 (6-22) Glucose 94 (70-99) mg/dL Calcium 9.9 (8.4-10.2) mg/dL Magnesium 2.3 (1.6-2.3) mg/dL Total Bilirubin 0.6 (0.2-1.3) mg/dL AST 47 H (14-36) IU/L ALT 21 (<35) IU/L Alkaline Phosphatase 67 (38-126) U/L Total Creatine Kinase 21 L (30-135) U/L Troponin I < 0.012 (0.01-0.034) ng/mL NT-Pro-B Natriuret Pep 444 (<450) pg/mL Total Protein 7.3 (6.3-8.2) g/dL Albumin 4.5 (3.5-5.0) g/dL Globulin 2.8 (1.7-4.1) g/dL Albumin/Globulin Ratio 1.6 (1.0-2.8) Lipase 150 (23-300) U/L Imaging Data CT scan - head: Radiologist Impression: [address] [address] [address] Scan Report Signed Patient: Celina Parsons MR#: [id number] : 1945 Acct:[id number] Age/Sex: 79 / F Date of Service: 05/07/25 Loc: ED Accession Number: [id number] Procedure: CT angio head and neck Ordering Provider: Familia He D.O. PROCEDURE: CT ANGIO HEAD AND NECK INDICATIONS: hx of brain aneurysm headache TECHNIQUE: After the administration of intravenous contrast, 1 mm thick sections acquired from the aortic arch through the [place] of [place]. 3-dimensional ftmesip-rbrnurlmz-beflgjavfj (MIP) and/or volume rendering reformats were acquired of the central intracranial vasculature and neck separately. For radiation dose reduction, the following was used: automated exposure control, adjustment of mA and/or kV according to patient size. COMPARISON: [facility], CT, CT HEAD/BRAIN WO CON, 05/07/2025, 14:03. FINDINGS: Image quality: Diagnostic. Cerebral CT Angiogram: Internal carotid arteries: No acute findings. Intracranial ICA are patent with no significant stenosis. No occlusion. No aneurysm. Anterior cerebral arteries: Unremarkable. No significant stenosis. No occlusion. No aneurysm. Middle cerebral arteries: Unremarkable. No significant stenosis. No occlusion. No aneurysm. Posterior cerebral arteries: A type origin of the right posterior cerebral artery, a normal anatomic variant. No significant stenosis. No occlusion. No aneurysm. Basilar artery: Unremarkable. No significant stenosis. No occlusion. No aneurysm. Vertebral arteries: Unremarkable as visualized. Dural venous sinuses: Unremarkable given phase of enhancement. Other: Arterial phase appearance of the brain parenchyma is unremarkable. Neck CT Angiogram: Internal carotid arteries: Tortuous appearance of the internal carotid arteries. No significant stenosis. No dissection or occlusion. Common carotid arteries: Unremarkable. No significant stenosis. No dissection or occlusion. External carotid arteries: Unremarkable. No occlusion. Vertebral arteries: Left vertebral artery arises directly from the aortic arch, a normal anatomic variant. The left vertebral artery is occluded just distal to the origin. There is distal reconstitution of the intracranial portion via collateral flow likely from the contralateral right vertebral artery, which is patent. . No significant stenosis. No dissection or occlusion. Aortic Arch and Mediastinum: Partially visualized aortic arch unremarkable without evidence of aneurysm. Origins of the great vessels unremarkable. Other: Arterial phase soft tissues of the neck and chest are unremarkable. Cervical spinal fusion hardware is present. IMPRESSION: No significant intracranial arterial abnormality is seen. No intracranial aneurysm. 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 Variant anatomy left vertebral artery origin arising from the aortic arch. Reconstitution of the intracranial portion of the left vertebral artery, likely via collateral flow from a patent right vertebral artery. Findings were discussed with the referring provider, Dr. He, by telephone on 05/07/2025 at 2:49 PM. Any quantitative measurements of stenosis were performed using NASCET criteria. Approved by: Chivo Soni M.D. on 05/07/2025 at 14:53 ECG Data Interpretation: Sinus Silver HR 53 IA 134 QRS [address]-t wave change Unchanged from 05/01/21 [facility] Narrative Medical decision making narrative: Vital signs, nurse triage note, medication list, all previous ER visits and all imaging modality reviewed. Heart score of 3 EKG shows sinus Silver heart rate of [address]-T wave change. Chest x-ray showed no acute process CT head and neck showed occluded left vertebral artery near the origin. Anatomy left vertebral artery origin arising from the aortic arch. Constitutional of the intracranial portion of the left vertebral artery likely via collateral flow from the patent right vertebral artery. Case was discussed with Dr. Cheng neurosurgeon on-call no intervention at this time but to continue aspirin cholesterol for which she already and blood pressure med. Patient will be discharged on aspirin and blood pressure medicine since she is already on statin. Differential diagnosis includes subarachnoid hemorrhage CVA TIA subdural epidural hemorrhage. Follow up with PCP in 1-2 weeks. 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 Take aspirin cholesterol medicine and blood pressure medicine daily. Follow up with PCP next week. Prescriptions: New hydrochlorothiazide 12.5 mg tablet 12.5 mg PO DAILY Qty: 30 0RF No Action hydrocodone-acetaminophen 5-325 mg tablet 1 tab PO Q6H PRN (Reason: pain) Qty: 10 0RF acetaminophen 500 mg Tablet 500 mg PO Q6H PRN (Reason: Pain) tramadol 50 mg tablet 50 mg PO DIRECTED metoprolol tartrate 25 mg tablet 25 mg PO DIRECTED docusate sodium 100 mg Capsule 100 mg PO BID PRN (Reason: constipation) Qty: 20 0RF pantoprazole 20 mg Tablet,Delayed Release (Dr/Ec) 20 mg PO 0700,2100 PRN (Reason: stomach upset) Qty: 60 0RF oxycodone 5 mg Tablet 5 mg PO Q3HR PRN (Reason: Pain, Moderate (4-6)) Qty: 42 0RF hydroxyzine pamoate 25 mg Capsule 25 mg PO Q4HR PRN (Reason: Nausea, aggitation, spasms) Qty: 30 0RF Referrals: Young,Toña, PA-C [Primary Care Provider, Medical] Stand Alone Forms: Patient Portal/API
[2025-05-07 13:15] LABS: Add Manual Diff / Slide Review NO; Basophils Absolute Auto 100 /uL (0-100); Basophils Percent Auto 0.8 % (0-2); Eosinophils Absolute Auto 200 /uL (0-450); Eosinophils Percent Auto 1.7 % (2-4); Hematocrit 43.3 % (36-46); Hemoglobin 14.3 g/dL (12.0-16.0); Lymphocytes Absolute Auto 1700 /uL (1100-4500); Lymphocytes Percent Auto 15.5 % (25-40); Mean Corpuscular Hemoglobin 31.6 PG (26-34); Mean Corpuscular Volume 95.8 fL (80-100); Monocytes Absolute Auto 1000 /uL (0-900); Monocytes Percent Auto 8.5 % (3-14); Neutrophils Absolute Auto 8300 /uL (1500-7000); Neutrophils Percent Auto 73.5 % (50-75); Platelet Count 240 X10^3/uL (150-400); Red Blood Cell Count 4.52 X10^6/uL (4.0-5.2); Red Cell Distribution Width 13.4 % (11.6-14.8); White Blood Cell Count 11.2 X10^3/uL (4.5-11.0)
[2025-05-07 13:16] LABS: Prothrombin Time 11.5 SECONDS (9.4-12.5)
[2025-05-07 13:19] LABS: PTT Partial Thromboplastin Tim 36 SECONDS (25.1-36.5)
--- NOTE | 2025-05-07 13:19 | DI.CT.S_ITS ---
PROCEDURE: CT HEAD/BRAIN WO CON INDICATIONS: headache TECHNIQUE: Noncontrast 4.5 mm thick angled axial sections acquired from the foramen magnum to the vertex, with coronal and sagittal reformats. For radiation dose reduction, the following was used: automated exposure control, adjustment of mA and/or kV according to patient size. COMPARISON: None. FINDINGS: Image quality: Diagnostic. CSF spaces: Basal cisterns are patent. No extra-axial fluid collections. The ventricles are symmetric in size and shape. Brain: No acute intracranial hemorrhage or mass effect. There is cerebral volume loss, with resultant ventricular and sulcal prominence. There are periventricular and deep white matter chronic small vessel ischemic changes. There is intracranial internal carotid artery atherosclerosis. Skull and face: Calvarium and visualized facial bones appear intact, without suspicious lesions. Sinuses: Visualized sinuses and mastoids are clear. IMPRESSION: No acute intracranial pathology. Approved by: Chivo Soni M.D. on 05/07/2025 at 14:42
--- NOTE | 2025-05-07 13:19 | DI.CT.S_ITS ---
PROCEDURE: CT ANGIO HEAD AND NECK INDICATIONS: hx of brain aneurysm headache TECHNIQUE: After the administration of intravenous contrast, 1 mm thick sections acquired from the aortic arch through the [place] of [place]. 3-dimensional ygkcmtp-voylkkacn-vqvdmsmokh (MIP) and/or volume rendering reformats were acquired of the central intracranial vasculature and neck separately. For radiation dose reduction, the following was used: automated exposure control, adjustment of mA and/or kV according to patient size. COMPARISON: [facility], CT, CT HEAD/BRAIN WO CON, 05/07/2025, 14:03. FINDINGS: Image quality: Diagnostic. Cerebral CT Angiogram: Internal carotid arteries: No acute findings. Intracranial ICA are patent with no significant stenosis. No occlusion. No aneurysm. Anterior cerebral arteries: Unremarkable. No significant stenosis. No occlusion. No aneurysm. Middle cerebral arteries: Unremarkable. No significant stenosis. No occlusion. No aneurysm. Posterior cerebral arteries: A type origin of the right posterior cerebral artery, a normal anatomic variant. No significant stenosis. No occlusion. No aneurysm. Basilar artery: Unremarkable. No significant stenosis. No occlusion. No aneurysm. Vertebral arteries: Unremarkable as visualized. Dural venous sinuses: Unremarkable given phase of enhancement. Other: Arterial phase appearance of the brain parenchyma is unremarkable. Neck CT Angiogram: Internal carotid arteries: Tortuous appearance of the internal carotid arteries. No significant stenosis. No dissection or occlusion. Common carotid arteries: Unremarkable. No significant stenosis. No dissection or occlusion. External carotid arteries: Unremarkable. No occlusion. Vertebral arteries: Left vertebral artery arises directly from the aortic arch, a normal anatomic variant. The left vertebral artery is occluded just distal to the origin. There is distal reconstitution of the intracranial portion via collateral flow likely from the contralateral right vertebral artery, which is patent. . No significant stenosis. No dissection or occlusion. Aortic Arch and Mediastinum: Partially visualized aortic arch unremarkable without evidence of aneurysm. Origins of the great vessels unremarkable. Other: Arterial phase soft tissues of the neck and chest are unremarkable. Cervical spinal fusion hardware is present. IMPRESSION: No significant intracranial arterial abnormality is seen. No intracranial aneurysm. 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 Variant anatomy left vertebral artery origin arising from the aortic arch. Reconstitution of the intracranial portion of the left vertebral artery, likely via collateral flow from a patent right vertebral artery. Findings were discussed with the referring provider, Dr. He, by telephone on 05/07/2025 at 2:49 PM. Any quantitative measurements of stenosis were performed using NASCET criteria. Approved by: Chivo Soni M.D. on 05/07/2025 at 14:53
[2025-05-07 13:32] LABS: Alanine Aminotransferase 21 IU/L (<35); Albumin 4.5 g/dL (3.5-5.0); Albumin Globulin Ratio 1.6 (1.0-2.8); Alkaline Phosphatase 67 U/L (38-126); Aspartate Aminotransferase 47 IU/L (14-36); BUN Creatinine Ratio 18.9 (6-22); Bilirubin Total 0.6 mg/dL (0.2-1.3); Blood Urea Nitrogen 17 mg/dL (7-17); Calcium 9.9 mg/dL (8.4-10.2); Carbon Dioxide 26 mmol/L (22-32); Chloride 103 mmol/L (98-107); Creatine Kinase 21 U/L (30-135); Estimated Glomerular Filt Rate > 60 mL/min (>60); Globulin 2.8 g/dL (1.7-4.1); Glucose 94 mg/dL (70-99); HEMOLYSIS 33 (0-50); Lipase 150 U/L (23-300); Magnesium 2.3 mg/dL (1.6-2.3); Potassium 4.2 mmol/L (3.4-5.1); Sodium 137 mmol/L (137-145); Total Protein 7.3 g/dL (6.3-8.2)
[2025-05-07 13:43] LABS: NT-proBNP (BNP-Adult 18+) 444 pg/mL (<450); Troponin I < 0.012 ng/mL (0.01-0.034)
--- NOTE | 2025-05-07 14:01 | PC.NURSE ---
Pt returns from bathroom via wheelchair. Upon standing she reports feeling a really bad headache and lightheadedness. Chest pain is 3/10. Pt reports she has a chronic headache always.
--- NOTE | 2025-05-07 14:14 | PC.NURSE ---
Pt rhythm appears to have changed. Provider Neri made aware and verbal order for repeat EKG.
--- NOTE | 2025-05-07 14:17 | EKG_ITS ---
[address] [address] Test Date: 2025-05-07 Pat Name: Celina Parsons Department: Room: Gender: Female Director Rehabilitation Program: MARISSA : 1945 Requested By: Order Number: [id number] Reading MD: Familia Rivera MD Measurements Intervals [place] Rate: 53 P: 33 CA: 134 QRS: -10 QRSD: 90 T: 38 QT: 458 QTc: 429 Interpretive Statements Sinus bradycardia Electronically Signed On 05-08-2025 7:34:55 PDT by Familia Rivera MD
--- NOTE | 2025-05-07 18:49 | PC.NURSE ---
This RN answers patient call light. Patient states she is frustrated and wants to know why Dr. Ann needs to be consulted. This RN gives education on process of ED docs consulting other specialists. Patient states she just wants to know what is happening, and I'm hungry. Primary RN Uyen made aware of patient concerns. Provider Neri goes to bedside for update.
[2025-05-07] MEDS: hydroCHLOROthiazide 25 MG TABLET PO (19:21)
== END 2025-05-07 19:50 | disposition home or self-care (01) ==
PROVIDERS: Emergency Provider Family Medicine; Family Provider Family Medicine; PCP Physician Assistant Medical
DX: I65.02 Occlusion and stenosis of left vertebral artery (principal); R51.9 Headache, unspecified; R06.02 Shortness of breath; R00.2 Palpitations; R25.1 Tremor, unspecified; R00.1 Bradycardia, unspecified; Z86.79 Personal history of other diseases of the circulatory system
CPT/HCPCS: 36415; 70450; 70496; 70498; 71045; 80053; 82550; 83690; 83735; 83880; 84484; 85025; 85610; 85730; 93005; 93010; 99284; Q9967

== ENCOUNTER → 2025-10-11 13:05 | Outpatient (CLI) | payer OTHER, SELFPAY ==
[2021-09-01 14:17] VITALS: BMI 20.8
--- NOTE | 2025-10-11 13:12 | DI.MRI.S_ITS ---
PROCEDURE: MR CERVICAL SPINE WO CON INDICATIONS: hx of cspine surgery TECHNIQUE: Noncontrast sagittal T1 spin echo and T2 fast spin echo, sagittal STIR, foraminal oblique sagittal T2 fast spin echo, and axial gradient echo or T2 fast spin echo through the cervical spine. COMPARISON: None. FINDINGS: Image quality: Excellent. Alignment and Curvature: There is normal bony alignment. Bone Marrow: C4 through C7 ACDF hardware. Marrow demonstrates normal overall signal. Spinal Cord: Visualized spinal cord has normal size and signal. No cerebellar tonsillar herniation. Paraspinous Soft Tissues: No paravertebral masses. Prevertebral soft tissues are normal in thickness. C2-C3: Facet and uncovertebral arthropathy. No central canal stenosis. Mild bilateral neural foraminal stenosis. C3-C4: Disc desiccation and moderate height loss. Mild posterior disc osteophyte complex. Facet and uncovertebral arthropathy. No central canal stenosis. Severe left and mild right neural foraminal stenosis. C4-C5: Postoperative changes. No significant central canal or neural foraminal stenosis. C5-C6: Postoperative changes. No central canal stenosis. Mild left and no significant right neural foraminal stenosis. C6-C7: Postoperative changes. No central canal stenosis. Moderate left and no right neural foraminal stenosis. C7-T1: No central canal or neural foraminal stenosis. IMPRESSION: 1. Multilevel degenerative changes of the cervical spine status post C4 through C7 ACDF. 2. No significant central canal stenosis throughout. 3. Severe left neural foraminal stenosis at C3-C4. Dictated by: Sregio Ricketts M.D. on 10/13/2025 at 13:06 Approved by: Sergio Ricketts M.D. on 10/13/2025 at 13:09
== END ==
LOC: MRI 13:10
PROVIDERS: PCP Physician Assistant; Referring Provider Acupuncturist; Visit Provider Acupuncturist
DX: M47.812 Spondylosis without myelopathy or radiculopathy, cervical region (principal); M48.02 Spinal stenosis, cervical region; Z98.1 Arthrodesis status; Z98.890 Other specified postprocedural states
CPT/HCPCS: 72141